=== PATIENT | female | born 1930 | race Caucasian/White ===

== ENCOUNTER 2017-08-25 22:08 | Inpatient (IN) | payer MEDICARE ==
[~2017-08-25] VITALS: Ht 165.1 cm; Wt 78.0 kg
--- NOTE | 2017-08-25 22:26 | PHYS DOC ---
Past History Past Medical History: High Cholesterol, Hypertension Additional Past Medical Histor: generalized weakness, repeated falls, behavioral disturbance acute psychosi Smoking: Non-smoker Alcohol Use: None Drug Use: None Adult General Chief Complaint Chief Complaint: acute psychosis HPI HPI Impression is an 87-year-old female who presents with acute psychosis today while at her group home facility. She is coming yesterday with a history of repeated falls generalized muscle weakness abnormalities of gait rhabdomyolysis , dehydration, hyperlipidemia, dementia with behavioral disturbances who presents after getting into some increasingly loud arguments with staff at the facility she staying at. When EMS arrived to transport her she got very aggressive with them requiring the use of Haldol to keep her comfortable quiet. She has a history of confusion is gotten progressively worse over last several days as noted in the transfer notes. They've having been increasingly difficulty and redirecting this patient. He actually refused her medications although she's been eating and drinking without issue she became increasingly agitated looking for her children or finding babies. Or specifically her baby sister. Because patient was refusing her medications and becoming increasingly agitated she was referred to our facility for evaluation and admission to the hospital for stabilization of her acute psychosis. Patient has no complaints no concerns and is completely confused as to why she is here. She says she is just sleepy Review of Systems Review of Systems Although the patient is not a great historian she denies the following Constitutional: Denies fever or chills [] Eyes: Denies change in visual acuity, redness, or eye pain [] HENT: Denies nasal congestion or sore throat [] Respiratory: Denies cough or shortness of breath [] Cardiovascular: No additional information not addressed in HPI [] GI: Denies abdominal pain, nausea, vomiting, bloody stools or diarrhea [] : Denies dysuria or hematuria [] Musculoskeletal: Denies back pain or joint pain [] Integument: Denies rash or skin lesions [] Neurologic: Denies headache, focal weakness or sensory changes [][] Physical Exam Physical Exam Constitutional: Well developed, well nourished, patient seems pretty clean does have some food stains on her shirt some mild abrasions to her chest wall to look like self inflicted excoriations HENT: Normocephalic, atraumatic, bilateral external ears normal, oropharynx moist, no oral exudates, nose normal. [] Eyes: PERRLA, EOMI, conjunctiva normal, no discharge. [] Neck: Normal range of motion, no tenderness, supple, no stridor. [] Cardiovascular:Heart rate regular rhythm, no murmur [] Lungs & Thorax: Bilateral breath sounds clear to auscultation [] Abdomen: Bowel sounds normal, soft, no tenderness, no masses, no pulsatile masses. [] Skin: Patient has significant candidal infection underneath each of her breasts Back: No tenderness, no CVA tenderness. [] Extremities: No tenderness,ROM intact, Neurologic: Alert and oriented X 1, normal motor function, normal sensory function, no focal deficits noted. [] Psychologic: Patient seems very jovial interactive although her judgment is completely off. Current Patient Data Lab Results Laboratory Tests Test 08/25/17 22:20 08/25/17 22:38 White Blood Count 7.6 x10^3/uL (4.0-11.0) Red Blood Count 5.12 x10^6/uL (3.50-5.40) Hemoglobin 15.2 g/dL (12.0-15.5) Hematocrit 45.2 % (36.0-47.0) Mean Corpuscular Volume 88 fL (79-100) Mean Corpuscular Hemoglobin 30 pg (25-35) Mean Corpuscular Hemoglobin Concent 34 g/dL (31-37) Red Cell Distribution Width 14.9 % (11.5-14.5) H Platelet Count 173 x10^3/uL (140-400) Neutrophils (%) (Auto) 53 % (31-73) Lymphocytes (%) (Auto) 26 % (24-48) Monocytes (%) (Auto) 15 % (0-9) H Eosinophils (%) (Auto) 6 % (0-3) H Basophils (%) (Auto) 1 % (0-3) Neutrophils # (Auto) 4.0 x10^3uL (1.8-7.7) Lymphocytes # (Auto) 2.0 x10^3/uL (1.0-4.8) Monocytes # (Auto) 1.2 x10^3/uL (0.0-1.1) H Eosinophils # (Auto) 0.4 x10^3/uL (0.0-0.7) Basophils # (Auto) 0.0 x10^3/uL (0.0-0.2) Magnesium Level Pending Total Bilirubin 0.3 mg/dL (0.2-1.0) Direct Bilirubin 0.1 mg/dL (0.0-0.2) Aspartate Amino Transferase (AST) 18 U/L (15-37) Alanine Aminotransferase (ALT) 22 U/L (14-59) Alkaline Phosphatase 93 U/L (46-116) Total Protein 6.6 g/dL (6.4-8.2) Albumin 3.3 g/dL (3.4-5.0) L Salicylates Level 0.8 mg/dL (2.8-20.0) L Salicylate Last Dose Date 08/25/2017 Salicylate Last Dose Time 0000 Acetaminophen Level < 2.0 mcg/mL (10-30) L Acetaminophen Last Dose Date 08/25/2017 Acetaminophen Last Dose Time 0000 Ethyl Alcohol Level < 10 mg/dL (0-10) POC Hemoglobin 15.6 gm/dL POC Hematocrit 46 % POC Sodium 141 mmol/L (135-145) POC Potassium 3.8 mmol/L (3.5-5.0) POC Chloride 106 mmol/L (98-110) POC Total CO2 24 mmol/L (23-32) Anion Gap 16 mmol/L (6-14) H POC Blood Urea Nitrogen 21 mg/dL (8-26) POC Creatinine 0.8 mg/dL (0.5-1.4) Glucose Level 124 mg/dL (60-99) H POC Ionized Calcium (Sheri) 1.19 mmol/L (1.13-1.32) EKG EKG EKG timed 10:18 PM 08/25/2017 read by me demonstrates heart rate of 67 normal sinus rhythm low voltage. Old Q-wave which is first-degree AV block QRS width 70 QTC of 432 this is a first-degree AV block without acute changes.[] Radiology/Procedures Radiology/Procedures [] Course & Med Decision Making Course & Med Decision Making Laboratory Tests Test 08/25/17 22:20 08/25/17 22:38 08/25/17 22:50 White Blood Count 7.6 x10^3/uL (4.0-11.0) Red Blood Count 5.12 x10^6/uL (3.50-5.40) Hemoglobin 15.2 g/dL (12.0-15.5) Hematocrit 45.2 % (36.0-47.0) Mean Corpuscular Volume 88 fL (79-100) Mean Corpuscular Hemoglobin 30 pg (25-35) Mean Corpuscular Hemoglobin Concent 34 g/dL (31-37) Red Cell Distribution Width 14.9 % (11.5-14.5) H Platelet Count 173 x10^3/uL (140-400) Neutrophils (%) (Auto) 53 % (31-73) Lymphocytes (%) (Auto) 26 % (24-48) Monocytes (%) (Auto) 15 % (0-9) H Eosinophils (%) (Auto) 6 % (0-3) H Basophils (%) (Auto) 1 % (0-3) Neutrophils # (Auto) 4.0 x10^3uL (1.8-7.7) Lymphocytes # (Auto) 2.0 x10^3/uL (1.0-4.8) Monocytes # (Auto) 1.2 x10^3/uL (0.0-1.1) H Eosinophils # (Auto) 0.4 x10^3/uL (0.0-0.7) Basophils # (Auto) 0.0 x10^3/uL (0.0-0.2) Magnesium Level Pending Total Bilirubin 0.3 mg/dL (0.2-1.0) Direct Bilirubin 0.1 mg/dL (0.0-0.2) Aspartate Amino Transferase (AST) 18 U/L (15-37) Alanine Aminotransferase (ALT) 22 U/L (14-59) Alkaline Phosphatase 93 U/L (46-116) Total Protein 6.6 g/dL (6.4-8.2) Albumin 3.3 g/dL (3.4-5.0) L Salicylates Level 0.8 mg/dL (2.8-20.0) L Salicylate Last Dose Date 08/25/2017 Salicylate Last Dose Time 0000 Acetaminophen Level < 2.0 mcg/mL (10-30) L Acetaminophen Last Dose Date 08/25/2017 Acetaminophen Last Dose Time 0000 Ethyl Alcohol Level < 10 mg/dL (0-10) POC Hemoglobin 15.6 gm/dL POC Hematocrit 46 % POC Sodium 141 mmol/L (135-145) POC Potassium 3.8 mmol/L (3.5-5.0) POC Chloride 106 mmol/L (98-110) POC Total CO2 24 mmol/L (23-32) Anion Gap 16 mmol/L (6-14) H POC Blood Urea Nitrogen 21 mg/dL (8-26) POC Creatinine 0.8 mg/dL (0.5-1.4) Glucose Level 124 mg/dL (60-99) H POC Ionized Calcium (Sheri) 1.19 mmol/L (1.13-1.32) Urine Collection Type U cath Urine Color Yellow Urine Clarity Clear Urine pH 5.5 Urine Specific [place] 1.015 Urine Protein Neg (NEG-TRACE) Urine Glucose (UA) Neg mg/dL (NEG) Urine Ketones (Stick) Neg mg/dL (NEG) Urine Blood Trace (NEG) Urine Nitrite Neg (NEG) Urine Bilirubin Neg (NEG) Urine Urobilinogen Dipstick 0.2 mg/dL (0.2 mg/dL) Urine Leukocyte Esterase Neg (NEG) Urine RBC Rare /HPF (0-2) Urine WBC Occ /HPF (0-4) Urine Squamous Epithelial Cells Occ /LPF Urine Bacteria 0 /HPF (0-FEW) Urine Opiates Screen Neg (NEG) Urine Methadone Screen Neg (NEG) Urine Barbiturates Neg (NEG) Urine Phencyclidine Screen Neg (NEG) Urine Amphetamine/Methamphetamine Neg (NEG) Urine Benzodiazepines Screen Neg (NEG) Urine Cocaine Screen Neg (NEG) Urine Cannabinoids Screen Neg (NEG) Urine Ethyl Alcohol Neg (NEG) Pertinent Labs and Imaging studies reviewed. (See chart for details) She presents to the emergency department secondary to behavioral problems and acute psychosis. Since troponin is negative at this time patient's CMP is unremarkable patient's anion gap is normal patient's acetaminophen, salicylate level and alcohol level on normal. Time is now 11:22 PM patient's urinalysis depending []Time is now 11:40 PM patient does not have a UTI she can be cleared and admitted to the hospital for her acute psychosis. Dragon Disclaimer Dragon Disclaimer This chart was dictated in whole or in part using Voice Recognition software in a busy, high-work load, and often noisy Emergency Department environment. It may contain unintended and wholly unrecognized errors or omissions. Departure Departure: Impression: Primary Impression: Acute psychosis Disposition: ADMITTED INPATIENT Admitting Physician: Other Condition: GUARDED BROVONT,SAVANNA A MD Aug 25, 2017 22:25
[2017-08-25 22:53] LABS: HEMOGLOBIN ISTAT 15.6 gm/dL; POTASSIUM ISTAT 3.8 mmol/L (3.5-5.0)
[2017-08-25 22:56] LABS: BASO % 1 % (0-3); EOS # 0.4 x10^3/uL (0.0-0.7); EOS % 6 % (0-3); HEMATOCRIT 45.2 % (36.0-47.0); HEMOGLOBIN 15.2 g/dL (12.0-15.5); LYMPH % 26 % (24-48); MEAN CORPUSCULAR HEMOGLOBIN 30 pg (25-35); MEAN CORPUSCULAR HGB CONC 34 g/dL (31-37); MEAN CORPUSCULAR VOLUME 88 fL (79-100); MONO # 1.2 x10^3/uL (0.0-1.1); MONO % 15 % (0-9); NEUT % 53 % (31-73); PLATELET COUNT 173 x10^3/uL (140-400); RED BLOOD COUNT 5.12 x10^6/uL (3.50-5.40); RED CELL DISTRIBUTION WIDTH 14.9 % (11.5-14.5); WHITE BLOOD COUNT 7.6 x10^3/uL (4.0-11.0)
--- NOTE | 2017-08-25 22:56 | EKG ---
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
[2017-08-25] MEDS ORDERED: NYST60PO TP (22:59)
[2017-08-25] MEDS ORDERED: ALPR0.5T PO (22:59)
[2017-08-25] MEDS ORDERED: SIMV40TA3 PO (22:59)
[2017-08-25] MEDS ORDERED: RISP0.2519 PO (22:59)
[2017-08-25] MEDS ORDERED: VIT1CAPS12 PO ×2 (22:59)
[2017-08-25] MEDS ORDERED: LUTE20TA PO (22:59)
[2017-08-25] MEDS ORDERED: QUET25TA5 PO (22:59)
[2017-08-25] MEDS ORDERED: ACET325T9 PO (22:59)
[2017-08-25] MEDS ORDERED: DEXT15DR5 OU (22:59)
[2017-08-25] MEDS ORDERED: CETI10TA22 PO (22:59)
[2017-08-25] MEDS ORDERED: TRAZ50TA15 PO (22:59)
[2017-08-25 23:07] LABS: ALBUMIN 3.3 g/dL (3.4-5.0); DIRECT BILIRUBIN 0.1 mg/dL (0.0-0.2); TOTAL BILIRUBIN 0.3 mg/dL (0.2-1.0); TOTAL PROTEIN 6.6 g/dL (6.4-8.2)
[2017-08-25 23:10] LABS: SALIC 0.8 mg/dL (2.8-20.0)
[2017-08-25 23:11] LABS: ACETAMIN < 2.0 mcg/mL (10-30)
[2017-08-25] MEDS ORDERED: CITA20TA9 PO (23:20)
[2017-08-25 23:31] LABS: AMPHETAMINE/METHAMPHETAMINE NEG (NEG); BARBITURATES NEG (NEG); BENZODIAZEPINES NEG (NEG); CANNABINOIDS NEG (NEG); COCAINE NEG (NEG); METHADONE NEG (NEG); OPIATES NEG (NEG); PHENCYCLIDINE NEG (NEG)
[2017-08-25 23:41] LABS: COLOR,URINE YELLOW
[2017-08-25 23:42] LABS: BACTERIA,URINE 0 /HPF (0-FEW); BILIRUBIN,URINE NEG (NEG); CLARITY,URINE CLEAR; GLUCOSE,URINE NEG (NEG); NITRITE,URINE NEG (NEG); RBC,URINE RARE /HPF (0-2); SQUAMOUS EPITHELIAL CELL,UR OCC /LPF; UROBILINOGEN,URINE 0.2 mg/dL (0.2 mg/dL); WBC,URINE OCC /HPF (0-4)
[2017-08-26 00:39] LABS: MAGNESIUM 2.2 mg/dL (1.8-2.4)
[2017-08-26] MEDS ORDERED: ACETAMINOPHEN 325 MG TABLET PO PRN (00:45)
[2017-08-26] MEDS ORDERED: ALPRAZolam 0.5 MG TABLET PO PRN (00:45)
[2017-08-26] MEDS ORDERED: METHYL SALICYLATE/MENTHOL TOPICAL OINTMENT 29GM TUBE. TP PRN (00:45)
[2017-08-26] MEDS ORDERED: MAG HYDROX/AL HYDROX/SIMETH 30 ML ORAL.SUSP PO PRN (00:45)
[2017-08-26 00:59] VITALS: BP 113/72
[2017-08-26 05:41] VITALS: BP 122/68
[2017-08-26] MEDS: MULTIVITAMIN I-VITE TABLET. PO SCH ×2 (07:46→17:46)
[2017-08-26] MEDS: NYSTATIN TOPICAL POWDER 15GM BOTTLE. TP SCH ×2 (07:46→20:20)
[2017-08-26] MEDS: CETIRIZINE HCL 10 MG TABLET PO SCH (07:46)
[2017-08-26] MEDS: CITALOPRAM 20 MG TABLET. PO SCH (07:47)
[2017-08-26] MEDS ORDERED: VIT E PO SCH (08:00)
[2017-08-26] MEDS ORDERED: VIT A PO SCH (08:00)
[2017-08-26] MEDS ORDERED: COPPER PO SCH (08:00)
[2017-08-26] MEDS ORDERED: VIT C PO SCH (08:00)
[2017-08-26] MEDS ORDERED: ZINC PO SCH (08:00)
[2017-08-26] MEDS: POLYVINYL ALCOHOL 1.4% OPHTH SOLUTION 15ML BOTTLE. OU SCH ×2 (09:00→20:21)
[2017-08-26] MEDS ORDERED: SIMVASTATIN 40 MG TABLET. PO SCH (09:00)
[2017-08-26] MEDS ORDERED: NON FORMULARY ITEM (Lutein 20 MG) PO SCH (12:00)
[2017-08-26 13:30] LABS: THYROID STIM HORMONE (TSH) 2.337 uIU/mL (0.358-3.740)
[2017-08-26 16:31] VITALS: BP 114/83
[2017-08-26 19:13] LABS: T3 TOTAL 100 ng/dL (71-180); THYROXINE 6.1 ug/dL (4.5-12.0)
[2017-08-26] MEDS: traZODone 50 MG TABLET. PO SCH (20:18)
[2017-08-26] MEDS: QUEtiapine 25 MG TABLET. PO SCH (20:18)
[2017-08-26] MEDS: SIMVASTATIN 40 MG TABLET. PO SCH (20:18)
[2017-08-26] MEDS: risperiDONE 0.25 MG TABLET. PO SCH (20:18)
[2017-08-27 01:14] LABS: HEMOGLOBIN A1C 5.5 % (4.8-5.6)
[2017-08-27 05:56] VITALS: BP 125/62
[2017-08-27] MEDS: MULTIVITAMIN I-VITE TABLET. PO SCH ×2 (07:44→14:03)
[2017-08-27] MEDS: CETIRIZINE HCL 10 MG TABLET PO SCH (07:44)
[2017-08-27] MEDS: CITALOPRAM 20 MG TABLET. PO SCH (07:45)
[2017-08-27] MEDS: POLYVINYL ALCOHOL 1.4% OPHTH SOLUTION 15ML BOTTLE. OU SCH ×2 (07:46→19:37)
[2017-08-27] MEDS: NYSTATIN TOPICAL POWDER 15GM BOTTLE. TP SCH ×2 (07:47→19:39)
--- NOTE | 2017-08-27 10:46 | PSYEV ---
DATE OF SERVICE: 08/26/2017 REASON FOR ADMISSION: This 87-year-old female was admitted from [facility] in [place]. The patient apparently became very delusional and paranoid, refusing medications. Her parents were killed recently, also looking for a child, exit seeking behaviors, crying and threatening towards staff. Apparently, the patient was given several p.r.n. injections to calm her down. Finally, she was sent here. CHIEF COMPLAINT: "I become bad and got into trouble." HISTORY OF PRESENT ILLNESS: The patient is a poor historian having significant problems with her memory. The patient remembers some of the things from the past. The patient states she was upset because of giving shots on her left arm and then she can become upset, threatening towards the staff. The patient states she has been at the [facility] for almost 7 years. The patient talked about her family. Her several years ago after more than 50 years of marriage and she had 2 sons, one from kidney failure and he was on dialysis. The patient currently not exhibiting any delusional thinking. The patient has problems with identification. The patient has episodic confusion, also having some problems with sleep and no change in her appetite. The patient currently denies of any active hallucinations, denies of any suicidal or homicidal thoughts. PAST PSYCHIATRIC HISTORY: None available. CURRENT MEDICATIONS: Include trazodone 12.5 mg at night, Risperdal 0.25 mg at night, Seroquel 25 mg at night. She is also on citalopram 20 mg daily, Xanax 0.5 mg q.6 hours p.r.n. PAST MEDICAL HISTORY: The patient has hyperlipidemia. The patient denies of having any major problems except for pain in left arm. PSYCHOSOCIAL HISTORY: The patient vaguely remembers few things from the past. States she finished high school with 1 year of college. 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 She was for more than 50 years. from heart disease in the past few years. The patient states since his , she has been depressed, not happy with herself. The patient also denies that she has any problems with her memory. The patient denies of any use of tobacco or alcohol. The patient denies of any abuse in her childhood. FAMILY HISTORY: None available. The patient's medical record reviewed. Apparently, patient was at [facility] in [place] recently, treated for with similar behavior problems and she has been on the [facility] center recently. The patient is DNR. MENTAL STATUS EXAMINATION: The patient appeared to be of her stated age, casually dressed, able to make eye contact. The patient is on wheelchair. The patient has some hearing loss. Eye sight is fairly good. Speech clear, monotone, decreased rate and rhythm. Affect and mood showed she has been anxious, confused at times, and recent history of behavior problems including refusing the meds, being combative with the staff and also delusional and paranoid. She thought her parents were killed recently and also she thought one of her child is missing. The patient is somewhat clear with her thinking at this time, but she did not recall where she was. The patient denies of any suicidal or homicidal thoughts. The patient currently denies of any visual or auditory hallucinations. She is oriented to surroundings. Her memory is impaired for both past and present. The patient is not able to recall 3 objects in 3 minutes. The patient's remote memory also impaired. STRENGTHS: The patient has some support system to the family. 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 AXIS II: None. AXIS III: Hyperlipidemia. ALLERGIES: The patient has no known allergies. INITIAL TREATMENT PLAN: The patient will be admitted to the inpatient program. The patient will have a full physical exam and a routine lab work, which I reviewed. Apparently, they are all within normal range except for low iron at 37, saturation 13, glucose level was 124. The patient will continue on the medication including trazodone 12.5 mg at night, Risperdal 0.25 mg at night, Seroquel 25 mg at night, citalopram 20 mg daily, Xanax 0.5 mg q.6 hours p.r.n. She is also on simvastatin 50 mg at night. The patient will be encouraged to attend all the activities and try to get information from the [facility]. LENGTH OF STAY: 7-10 days. YESICA NOEL MD DR: BERLIN/carl JOB#: [id number] / [id number]
--- NOTE | 2017-08-27 11:41 | CONS ---
DATE OF CONSULTATION: 08/26/2017 REASON FOR CONSULTATION: Medical management. HISTORY OF PRESENT ILLNESS: The patient is an 87-year-old female patient, a resident at [facility] who was [facility] on account of being paranoid, delusional, refusing medication, thinks parents have been killed, exit seeking, believes she has a missing child, crying and threatening staff. Believed that the nephrology social worker was her grandmother, all this in the background of dementia with psychosis. PAST MEDICAL HISTORY: Significant for hyperlipidemia, muscle weakness and recurrent falls. PSYCHIATRIC HISTORY: Significant for dementia with unspecified psychosis and depression. PAST SURGICAL HISTORY: Unremarkable. ALLERGIES: She has no known drug allergies. FAMILY HISTORY: Also is unremarkable. SOCIAL HISTORY: She is a resident at [facility]. MEDICATIONS: She is currently on the following medications: Tylenol 650 mg every 6 hours as needed, alprazolam for Xanax 0.5 mg every 6 hours, cetirizine 10 mg once a day, citalopram hydrobromide for Celexa 20 mg once a day, artificial tears 1 drop to both eyes twice a day, Lutein 20 mg once a day and nystatin 60 gram powder, applied topically twice a day, thiamine fumarate for Seroquel 25 mg at bedtime, risperidone 0.25 mg at bedtime, simvastatin 40 mg at bedtime, trazodone 12.5 mg at bedtime. She is also on PreserVision AREDS soft gel 1 capsule at bedtime. REVIEW OF SYSTEMS: Unobtainable. The patient is extremely demented. PHYSICAL EXAMINATION: GENERAL: When I examined her, she was sitting comfortably in her wheelchair, in no apparent respiratory distress. She was pale, but no jaundice, cyanosis, lymphadenopathy or thyromegaly. No jugular venous distention. No limb edema. VITAL SIGNS: Her heart rate was 65, blood pressure 114/83, temperature was 98, respiratory rate 20, and oxygen saturation was 93%. HEENT: Showed normocephalic, atraumatic. NECK: Supple. HEART: Showed normal first and second heart sounds with no gallop, rub or murmur. CHEST: Clear to auscultation. No crepitation or rhonchi. ABDOMEN: Distended, soft, nontender. NEUROLOGIC: She is demented, but without any obvious lateralizing sign. All cranial nerves intact. EXTREMITIES: She moves extremities without difficulty. She is mostly wheelchair bound. She stated that she is able to walk with standby assist with a walker. LABORATORY DATA: Showed that her white cell count was 7600, hemoglobin 15, hematocrit 45, MCV 88 and platelet count of 173,000 with normal manual differential. Her chemistry showed that her serum sodium 141, potassium 3.8, chloride 106, bicarbonate 24, anion gap of 16, BUN 21, creatinine 0.8, her glucose was 124. Ionized calcium was 1.19, magnesium was 2.2. Her serum iron was 37, TIBC was 288, percent saturation was 13%. Her total bilirubin, AST, ALT, alkaline phosphatase were normal. Total protein was 6.6, albumin was 3.3. Her serum triglycerides were 123. Total cholesterol 164, LDL was 96, VLDL was 24. HDL was 44, the ratio was 3. Her vitamin B12 was 610 pg/mL. TSH was normal at 2.337. Urinalysis was essentially unremarkable and urine toxicology was also negative. IMPRESSION: In summary, this is an 87-year-old female patient, a resident at [facility] who apparently is known to have dementia with psychosis, who was admitted on account of being paranoid, delusional, refusing medication, thinks her parents had been killed, exit seeking, believes that she has missing child, crying, threatening staff, she was [facility] to [facility] for inpatient psychiatric stabilization. Medically, she seemed to be stable. All her vital signs are normal. His lab works were normal. I reviewed with all her medications, seem to be appropriate. The only medical problem that she is hyperlipidemia for which she is already on simvastatin and I will obviously review all the lab work that are still pending at the time of this dictation and make any necessary recommendation. Thank you, Dr. Wade, for allowing me to participate in the care of this patient. BRI ALARCON MD DR: CHLOÉ/carl JOB#: [id number] / [id number]
[2017-08-27 15:51] VITALS: BP 102/69
[2017-08-27] MEDS: risperiDONE 0.25 MG TABLET. PO SCH (19:35)
[2017-08-27] MEDS: SIMVASTATIN 40 MG TABLET. PO SCH (19:35)
[2017-08-27] MEDS: QUEtiapine 25 MG TABLET. PO SCH (19:35)
[2017-08-27] MEDS: traZODone 50 MG TABLET. PO SCH (19:35)
[2017-08-27] MEDS: CHOLECALCIFEROL (VITAMIN D3) 50,000 UNIT CAPSULE PO SCH (19:37)
--- NOTE | 2017-08-28 02:32 | PN ---
DATE: 08/27/2017 SUBJECTIVE: The patient was seen today, met with the staff, chart reviewed. The patient apparently has settled down. She is still confused, exit-seeking behaviors, also emotionally labile. The patient has difficult to redirect at times. OBSERVATION: VITAL SIGNS: Temperature 97.3, blood pressure 125/62, pulse 67, respirations 16, and O2 sat 94%. Slept about 7 hours last night. The patient's appetite is fair. The patient is on wheelchair and no falls. Staff reports no major problems. The patient's lab reviewed. MEDICATIONS: The patient's current medications include trazodone 12.5 mg at night, Risperdal 0.25 mg at night, Seroquel 25 mg at night, Celexa 20 mg daily, Xanax 0.5 mg q.6 hours p.r.n. 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 AXIS II: None. AXIS III: Hyperlipidemia. PLAN: The patient will continue on the current treatment. Continue to observe. Length of stay 5-7 days. YESICA NOEL MD DR: BERLIN/carl JOB#: [id number] / [id number]
[2017-08-28 05:58] VITALS: BP 143/67
[2017-08-28] MEDS: CETIRIZINE HCL 10 MG TABLET PO SCH (07:51)
[2017-08-28] MEDS: CITALOPRAM 20 MG TABLET. PO SCH (07:51)
[2017-08-28] MEDS: MULTIVITAMIN I-VITE TABLET. PO SCH ×2 (07:51→18:03)
[2017-08-28] MEDS: POLYVINYL ALCOHOL 1.4% OPHTH SOLUTION 15ML BOTTLE. OU SCH ×2 (07:53→20:01)
[2017-08-28] MEDS: NYSTATIN TOPICAL POWDER 15GM BOTTLE. TP SCH ×2 (07:53→20:01)
[2017-08-28 16:42] VITALS: BP 105/56
[2017-08-28] MEDS: SIMVASTATIN 40 MG TABLET. PO SCH (19:56)
[2017-08-28] MEDS: QUEtiapine 25 MG TABLET. PO SCH (19:56)
[2017-08-28] MEDS: risperiDONE 0.25 MG TABLET. PO SCH (19:56)
[2017-08-28] MEDS: traZODone 50 MG TABLET. PO SCH (19:59)
--- NOTE | 2017-08-29 03:28 | PN ---
DATE: 08/28/2017 SUBJECTIVE: The patient was seen today, met with the staff, chart reviewed. The patient continues to be confused, constantly pacing on a wheelchair, having delusional thinking, high level of anxiety and emotional outbursts. OBSERVATION: VITAL SIGNS: Temperature 97, blood pressure 143/67, pulse 74, respirations 16, O2 sat 94%. Slept about 6-1/2 hours last night. The patient is not having any physical complaints. MEDICATIONS: The patient's current medications include trazodone 12.5 mg at night, Risperdal 0.25 mg at night, Seroquel 25 mg at night, Celexa 20 mg daily, Xanax 0.5 mg q. 6 hours p.r.n. The patient is not having side effects. ASSESSMENT: Dementia, most likely Alzheimer's with delusion and behavioral disturbances. PLAN: To continue with the treatment. YESICA NOEL MD DR: BERLIN/carl JOB#: [id number] / [id number]
[2017-08-29 06:22] VITALS: BP 121/61
[2017-08-29] MEDS: MULTIVITAMIN I-VITE TABLET. PO SCH ×2 (10:15→14:23)
[2017-08-29] MEDS: CITALOPRAM 20 MG TABLET. PO SCH (10:16)
[2017-08-29] MEDS: CETIRIZINE HCL 10 MG TABLET PO SCH (10:17)
[2017-08-29] MEDS: POLYVINYL ALCOHOL 1.4% OPHTH SOLUTION 15ML BOTTLE. OU SCH ×2 (10:18→20:05)
[2017-08-29] MEDS: NYSTATIN TOPICAL POWDER 15GM BOTTLE. TP SCH ×2 (10:19→20:05)
[2017-08-29 16:02] VITALS: BP 104/65
[2017-08-29] MEDS: risperiDONE 0.25 MG TABLET. PO SCH (20:04)
[2017-08-29] MEDS: traZODone 50 MG TABLET. PO SCH (20:04)
[2017-08-29] MEDS: SIMVASTATIN 40 MG TABLET. PO SCH (20:04)
--- NOTE | 2017-08-29 20:41 | PDOC ---
Exam Yao Demential Exam: Yao Note: Please also refer to the separate dictated note~for this date of service dictated separately.~Patient seen individually. Discussed the patient with Nursing staff reviewed the chart.~Reviewed interim history and current functioning. Reviewed vital signs,~Labs/ Radiology~and current medications noted below. Continue current treatment with the changes noted in the dictated addendum note Assessment: Vital Signs: Vital Signs Date Time Temp Pulse Resp B/P (MAP) Pulse Ox O2 Delivery O2 Flow Rate FiO2 08/29/17 16:02 97.7 65 18 104/65 (78) 92 08/29/17 06:22 Room Air 08/26/17 00:59 2.0 I&O Intake and Output 08/30/17 07:00 Intake Total 900 ml Balance 900 ml Intake Oral 900 ml Current Medications: Meds: Current Medications Acetaminophen (Tylenol) 650 mg PRN Q6HRS PRN PO PAIN / TEMP; Start 08/26/17 at 00:45 Multi-Ingredient Ointment (Analgesic [place]) 1 yasemin PRN QID PRN TP MUSCLE PAIN; Start 08/26/17 at 00:45 Al Hydroxide/Mg Hydroxide (Mylanta Plus Xs) 15 ml PRN AFTMEALHC PRN PO DYSPEPSIA; Start 08/26/17 at 00:45 Magnesium Hydroxide (Milk Of Magnesia) 2,400 mg PRN QHS PRN PO CONSTIPATION; Start 08/26/17 at 00:45 Alprazolam (Xanax) 0.5 mg PRN Q6HRS PRN PO ANXIETY / AGITATION; Start at 00:45 Citalopram Hydrobromide (CeleXA) 20 mg DAILY PO Last administered on 10:16; Start 08/26/17 at 09:00; Stop 08/29/17 at 19:37; Status DC Quetiapine Fumarate (SEROquel) 25 mg QHS PO Last administered on 08/28/17 19: 56; Start 08/26/17 at 21:00; Stop 08/29/17 at 19:37; Status DC Risperidone (RisperDAL) 0.25 mg QHS PO Last administered on 08/29/17 20:04; Start 08/26/17 at 21:00 Trazodone HCl (Desyrel) 12.5 mg QHS PO Last administered on 08/29/17 20:04; Start 08/26/17 at 21:00 Cetirizine HCl (ZyrTEC) 10 mg DAILY PO Last administered on 08/29/17 10:17; Start 08/26/17 at 09:00 Nystatin (Nystop) 1 yasemin BID TP Last administered on 08/29/17 20:05; Start at 09:00 Simvastatin (Zocor) 40 mg DAILY PO ; Start 08/26/17 at 09:00; Stop 08/26/17 at 09:00; Status DC Artificial Tears (Artificial Tears) 1 drop BID OU Last administered on 20:05; Start 08/26/17 at 09:00 Non-Formulary Medication 20 mg DAILYWLUN PO ; Start 08/26/17 at 12:00; Status UNV Multivitamins/ Minerals (I-Donavan) 1 tab BIDWMEALS PO Last administered on 14:23; Start 08/26/17 at 08:00 Non-Formulary Medication 2 cap DAILYWBKFT PO ; Start 08/26/17 at 08:00; Status UNV Simvastatin (Zocor) 40 mg HS PO Last administered on 08/29/17 20:04; Start 08/26/17 at 21:00 Vitamin D (Vitamin D3) 50,000 unit Sa@2000 PO Last administered on 08/27/17 19:37; Start 08/27/17 at 20:00 Sertraline HCl (Zoloft) 50 mg DAILY PO ; Start 08/30/17 at 09:00 Active Scripts Active Reported Celexa (Citalopram Hydrobromide) 20 Mg Tablet 20 Mg PO DAILY Zyrtec (Cetirizine Hcl) 10 Mg Tablet 10 Mg PO DAILY Tylenol (Acetaminophen) 325 Mg Tablet 650 Mg PO PRN Q6HRS PRN Trazodone Hcl 50 Mg Tablet 12.5 Mg PO QHS Simvastatin 40 Mg Tablet 40 Mg PO DAILY Seroquel (Quetiapine Fumarate) 25 Mg Tablet 25 Mg PO QHS Risperdal (Risperidone) 0.25 Mg Tablet 0.25 Mg PO QHS Preservision Areds Softgel (Vit A/Vit C/Vit E/Zinc/Copper) 1 Each Capsule 2 Cap PO DAILYWBKFT Preservision Areds Softgel (Vit A/Vit C/Vit E/Zinc/Copper) 1 Each Capsule 1 Cap PO QPM Nystop (Nystatin) 60 Gm Powder 1 Yasemin TP BID Lutein 20 Mg Tablet 20 Mg PO DAILYWLUN Artificial Tears Eye Drops (Dextran 70/Hypromellose) 15 Ml Drops 1 Drop OU BID Xanax (Alprazolam) 0.5 Mg Tablet 0.5 Mg PO PRN Q6HRS PRN Diagnosis: Problems: (1) Acute psychosis KALA COOK MD Aug 29, 2017 20:41
[2017-08-30 05:50] VITALS: BP 144/69
[2017-08-30] MEDS: MULTIVITAMIN I-VITE TABLET. PO SCH ×2 (08:53→11:14)
[2017-08-30] MEDS: CETIRIZINE HCL 10 MG TABLET PO SCH (11:14)
[2017-08-30] MEDS: NYSTATIN TOPICAL POWDER 15GM BOTTLE. TP SCH ×2 (11:14→20:29)
[2017-08-30] MEDS: POLYVINYL ALCOHOL 1.4% OPHTH SOLUTION 15ML BOTTLE. OU SCH ×2 (11:15→20:26)
[2017-08-30] MEDS: SERTRALINE 50 MG TABLET. PO SCH (11:15)
[2017-08-30] MEDS: MAGNESIUM HYDROXIDE 2,400 MG/30 ML ORAL.SUSP. PO PRN ×2 (16:01→16:02)
[2017-08-30 16:12] VITALS: BP 142/90
[2017-08-30] MEDS: SIMVASTATIN 40 MG TABLET. PO SCH (20:27)
[2017-08-30] MEDS: traZODone 50 MG TABLET. PO SCH (20:27)
[2017-08-30] MEDS: risperiDONE 0.25 MG TABLET. PO SCH (20:27)
[2017-08-30] MEDS ORDERED: risperiDONE 0.25 MG TABLET. PO SCH (21:00)
--- NOTE | 2017-08-30 22:06 | PDOC ---
Exam Yao Demential Exam: Yao Note: Please also refer to the separate dictated note~for this date of service dictated separately.~Patient seen individually. Discussed the patient with Nursing staff reviewed the chart.~Reviewed interim history and current functioning. Reviewed vital signs,~Labs/ Radiology~and current medications noted below. Continue current treatment with the changes noted in the dictated addendum note Assessment: Vital Signs: Vital Signs Date Time Temp Pulse Resp B/P (MAP) Pulse Ox O2 Delivery O2 Flow Rate FiO2 08/30/17 16:12 97.5 88 18 142/90 (107) 94 08/29/17 06:22 Room Air 08/26/17 00:59 2.0 I&O Intake and Output 08/31/17 07:00 Intake Total 840 ml Balance 840 ml Intake Oral 840 ml Current Medications: Meds: Current Medications Acetaminophen (Tylenol) 650 mg PRN Q6HRS PRN PO PAIN / TEMP; Start 08/26/17 at 00:45 Multi-Ingredient Ointment (Analgesic [place]) 1 yasemin PRN QID PRN TP MUSCLE PAIN; Start 08/26/17 at 00:45 Al Hydroxide/Mg Hydroxide (Mylanta Plus Xs) 15 ml PRN AFTMEALHC PRN PO DYSPEPSIA; Start 08/26/17 at 00:45 Magnesium Hydroxide (Milk Of Magnesia) 2,400 mg PRN QHS PRN PO CONSTIPATION Last administered on 08/30/17 16:02; Start 08/26/17 at 00:45 Alprazolam (Xanax) 0.5 mg PRN Q6HRS PRN PO ANXIETY / AGITATION; Start at 00:45 Citalopram Hydrobromide (CeleXA) 20 mg DAILY PO Last administered on 10:16; Start 08/26/17 at 09:00; Stop 08/29/17 at 19:37; Status DC Quetiapine Fumarate (SEROquel) 25 mg QHS PO Last administered on 08/28/17 19: 56; Start 08/26/17 at 21:00; Stop 08/29/17 at 19:37; Status DC Risperidone (RisperDAL) 0.25 mg QHS PO Last administered on 08/29/17 20:04; Start 08/26/17 at 21:00; Stop 08/30/17 at 18:39; Status DC Trazodone HCl (Desyrel) 12.5 mg QHS PO Last administered on 08/30/17 20:27; Start 08/26/17 at 21:00 Cetirizine HCl (ZyrTEC) 10 mg DAILY PO Last administered on 08/30/17 11:14; Start 08/26/17 at 09:00 Nystatin (Nystop) 1 yasemin BID TP Last administered on 08/30/17 20:29; Start at 09:00 Simvastatin (Zocor) 40 mg DAILY PO ; Start 08/26/17 at 09:00; Stop 08/26/17 at 09:00; Status DC Artificial Tears (Artificial Tears) 1 drop BID OU Last administered on 20:26; Start 08/26/17 at 09:00 Non-Formulary Medication 20 mg DAILYWLUN PO ; Start 08/26/17 at 12:00; Status UNV Multivitamins/ Minerals (I-[place]) 1 tab BIDWMEALS PO Last administered on 11:14; Start 08/26/17 at 08:00 Non-Formulary Medication 2 cap DAILYWBKFT PO ; Start 08/26/17 at 08:00; Status UNV Simvastatin (Zocor) 40 mg HS PO Last administered on 08/30/17 20:27; Start 08/26/17 at 21:00 Vitamin D (Vitamin D3) 50,000 unit Sa@2000 PO Last administered on 08/27/17 19:37; Start 08/27/17 at 20:00 Sertraline HCl (Zoloft) 50 mg DAILY PO Last administered on 08/30/17 11:15; Start 08/30/17 at 09:00 Risperidone (RisperDAL) 0.37 mg QHS PO ; Start 08/30/17 at 21:00; Stop at 21:00; Status DC Risperidone (RisperDAL) 0.375 mg HS PO Last administered on 08/30/17 20:27; Start 08/30/17 at 21:00 Active Scripts Active Reported Celexa (Citalopram Hydrobromide) 20 Mg Tablet 20 Mg PO DAILY Zyrtec (Cetirizine Hcl) 10 Mg Tablet 10 Mg PO DAILY Tylenol (Acetaminophen) 325 Mg Tablet 650 Mg PO PRN Q6HRS PRN Trazodone Hcl 50 Mg Tablet 12.5 Mg PO QHS Simvastatin 40 Mg Tablet 40 Mg PO DAILY Seroquel (Quetiapine Fumarate) 25 Mg Tablet 25 Mg PO QHS Risperdal (Risperidone) 0.25 Mg Tablet 0.25 Mg PO QHS Preservision Areds Softgel (Vit A/Vit C/Vit E/Zinc/Copper) 1 Each Capsule 2 Cap PO DAILYWBKFT Preservision Areds Softgel (Vit A/Vit C/Vit E/Zinc/Copper) 1 Each Capsule 1 Cap PO QPM Nystop (Nystatin) 60 Gm Powder 1 Yasemin TP BID Lutein 20 Mg Tablet 20 Mg PO DAILYWLUN Artificial Tears Eye Drops (Dextran 70/Hypromellose) 15 Ml Drops 1 Drop OU BID Xanax (Alprazolam) 0.5 Mg Tablet 0.5 Mg PO PRN Q6HRS PRN Diagnosis: Problems: (1) Acute psychosis KALA COOK MD Aug 30, 2017 22:06
--- NOTE | 2017-08-31 01:30 | PN ---
DATE: 08/29/2017 PSYCHIATRIC PROGRESS NOTE This is a late entry for date of service 08/29/2017, covers the elements not covered in my initial note of 08/29/2017. SUBJECTIVE: I met with the patient the evening of 08/29/2017. The patient remains confused, believes she has been moved here because her had a job and they moved him here for work. Takes her medications whole, oriented to herself. REVIEW OF SYSTEMS: Ambulation impaired, in a wheelchair. No CV, , pulmonary, eye, ENT system symptoms on review. Reliability poor. MENTAL STATUS EXAM: Oriented to herself. Insight, judgment, recent and remote memory, attention, concentration, fund of knowledge poor, consistent with her diagnosis mentioned in my initial note. PLAN: Change Celexa 20 mg a day to Zoloft 50 mg a day for mood, anxiety symptoms, increased gradually. Continue Risperdal 0.25 mg at bedtime, stop the Seroquel 25 mg at bedtime to avoid using 2 atypical antipsychotics in combination, maintain Xanax p.r.n., trazodone 12.5 mg p.o. at bedtime. Reviewed drug interactions, risk/benefit ratio favors no further change. KALA COOK MD DR: DIAZ/carl JOB#: [id number] / [id number]
[2017-08-31 05:55] VITALS: BP 133/62
[2017-08-31] MEDS: MULTIVITAMIN I-VITE TABLET. PO SCH ×2 (07:46→16:35)
[2017-08-31] MEDS: SERTRALINE 50 MG TABLET. PO SCH (07:47)
[2017-08-31] MEDS: MAGNESIUM HYDROXIDE 2,400 MG/30 ML ORAL.SUSP. PO PRN (07:47)
[2017-08-31] MEDS: CETIRIZINE HCL 10 MG TABLET PO SCH (07:47)
[2017-08-31] MEDS: POLYVINYL ALCOHOL 1.4% OPHTH SOLUTION 15ML BOTTLE. OU SCH ×2 (07:48→19:59)
[2017-08-31] MEDS: NYSTATIN TOPICAL POWDER 15GM BOTTLE. TP SCH ×2 (07:48→20:02)
[2017-08-31 16:32] VITALS: BP 105/50
[2017-08-31] MEDS: traZODone 50 MG TABLET. PO SCH (19:59)
[2017-08-31] MEDS: risperiDONE 0.25 MG TABLET. PO SCH (20:00)
[2017-08-31] MEDS: SIMVASTATIN 40 MG TABLET. PO SCH (20:00)
--- NOTE | 2017-08-31 20:50 | PDOC ---
Exam Yao Demential Exam: Yao Note: Please also refer to the separate dictated note~for this date of service dictated separately.~Patient seen individually. Discussed the patient with Nursing staff reviewed the chart.~Reviewed interim history and current functioning. Reviewed vital signs,~Labs/ Radiology~and current medications noted below. Continue current treatment with the changes noted in the dictated addendum note Assessment: Vital Signs: Vital Signs Date Time Temp Pulse Resp B/P (MAP) Pulse Ox O2 Delivery O2 Flow Rate FiO2 08/31/17 16:32 97.4 84 20 105/50 (68) 92 Room Air 08/26/17 00:59 2.0 I&O Intake and Output 09/01/17 07:00 Intake Total 840 ml Balance 840 ml Intake Oral 840 ml Current Medications: Meds: Current Medications Acetaminophen (Tylenol) 650 mg PRN Q6HRS PRN PO PAIN / TEMP; Start 08/26/17 at 00:45 Multi-Ingredient Ointment (Analgesic [place]) 1 yasemin PRN QID PRN TP MUSCLE PAIN; Start 08/26/17 at 00:45 Al Hydroxide/Mg Hydroxide (Mylanta Plus Xs) 15 ml PRN AFTMEALHC PRN PO DYSPEPSIA; Start 08/26/17 at 00:45 Magnesium Hydroxide (Milk Of Magnesia) 2,400 mg PRN QHS PRN PO CONSTIPATION Last administered on 08/31/17 07:47; Start 08/26/17 at 00:45 Alprazolam (Xanax) 0.5 mg PRN Q6HRS PRN PO ANXIETY / AGITATION; Start at 00:45 Citalopram Hydrobromide (CeleXA) 20 mg DAILY PO Last administered on 10:16; Start 08/26/17 at 09:00; Stop 08/29/17 at 19:37; Status DC Quetiapine Fumarate (SEROquel) 25 mg QHS PO Last administered on 08/28/17 19: 56; Start 08/26/17 at 21:00; Stop 08/29/17 at 19:37; Status DC Risperidone (RisperDAL) 0.25 mg QHS PO Last administered on 08/29/17 20:04; Start 08/26/17 at 21:00; Stop 08/30/17 at 18:39; Status DC Trazodone HCl (Desyrel) 12.5 mg QHS PO Last administered on 08/31/17 19:59; Start 08/26/17 at 21:00 Cetirizine HCl (ZyrTEC) 10 mg DAILY PO Last administered on 08/31/17 07:47; Start 08/26/17 at 09:00 Nystatin (Nystop) 1 yasemin BID TP Last administered on 08/31/17 20:02; Start at 09:00 Simvastatin (Zocor) 40 mg DAILY PO ; Start 08/26/17 at 09:00; Stop 08/26/17 at 09:00; Status DC Artificial Tears (Artificial Tears) 1 drop BID OU Last administered on 19:59; Start 08/26/17 at 09:00 Non-Formulary Medication 20 mg DAILYWLUN PO ; Start 08/26/17 at 12:00; Status UNV Multivitamins/ Minerals (I-[place]) 1 tab BIDWMEALS PO Last administered on 16:35; Start 08/26/17 at 08:00 Non-Formulary Medication 2 cap DAILYWBKFT PO ; Start 08/26/17 at 08:00; Status UNV Simvastatin (Zocor) 40 mg HS PO Last administered on 08/31/17 20:00; Start at 21:00 Vitamin D (Vitamin D3) 50,000 unit Sa@2000 PO Last administered on 08/27/17 19:37; Start 08/27/17 at 20:00 Sertraline HCl (Zoloft) 50 mg DAILY PO Last administered on 08/31/17 07:47; Start 08/30/17 at 09:00 Risperidone (RisperDAL) 0.37 mg QHS PO ; Start 08/30/17 at 21:00; Stop at 21:00; Status DC Risperidone (RisperDAL) 0.375 mg HS PO Last administered on 08/31/17 20:00; Start 08/30/17 at 21:00 Active Scripts Active Reported Celexa (Citalopram Hydrobromide) 20 Mg Tablet 20 Mg PO DAILY Zyrtec (Cetirizine Hcl) 10 Mg Tablet 10 Mg PO DAILY Tylenol (Acetaminophen) 325 Mg Tablet 650 Mg PO PRN Q6HRS PRN Trazodone Hcl 50 Mg Tablet 12.5 Mg PO QHS Simvastatin 40 Mg Tablet 40 Mg PO DAILY Seroquel (Quetiapine Fumarate) 25 Mg Tablet 25 Mg PO QHS Risperdal (Risperidone) 0.25 Mg Tablet 0.25 Mg PO QHS Preservision Areds Softgel (Vit A/Vit C/Vit E/Zinc/Copper) 1 Each Capsule 2 Cap PO DAILYWBKFT Preservision Areds Softgel (Vit A/Vit C/Vit E/Zinc/Copper) 1 Each Capsule 1 Cap PO QPM Nystop (Nystatin) 60 Gm Powder 1 Yasemin TP BID Lutein 20 Mg Tablet 20 Mg PO DAILYWLUN Artificial Tears Eye Drops (Dextran 70/Hypromellose) 15 Ml Drops 1 Drop OU BID Xanax (Alprazolam) 0.5 Mg Tablet 0.5 Mg PO PRN Q6HRS PRN Diagnosis: Problems: (1) Acute psychosis KALA COOK MD Aug 31, 2017 20:50
--- NOTE | 2017-08-31 22:58 | PN ---
DATE: 08/30/2017 This is a late entry for date of service 08/30/2017 and covers elements not covered in my initial note of 08/30/2017. I met with the patient the evening of 08/30/2017. She slept 7-3/4 hours the previous evening, remains confused, cooperative, pleasant. REVIEW OF SYSTEMS: Ambulation impaired, in wheelchair. No CV, , pulmonary, eye, ENT system symptoms on review. Reliability poor. MENTAL STATUS EXAM: Oriented to herself. Insight, judgment, recent and remote memory, attention, concentration, fund of knowledge poor, consistent with her diagnosis mentioned in my initial note. PLAN: Continue current psychotropics, Zoloft 50 mg a day, increase Risperdal from 0.25 mg at bedtime to 0.375 mg at bedtime. Stop the Seroquel to avoid using 2 atypical antipsychotics in combination, maintain trazodone 12.5 mg p.o. at bedtime. Reviewed drug interactions, risk/benefit ratio favors no further change. MAN Winsome COOK MD DR: DIAZ/carl JOB#: [id number] / [id number]
[2017-09-01 06:17] VITALS: BP 133/79
[2017-09-01] MEDS: CETIRIZINE HCL 10 MG TABLET PO SCH (08:13)
[2017-09-01] MEDS: SERTRALINE 50 MG TABLET. PO SCH (08:13)
[2017-09-01] MEDS: MULTIVITAMIN I-VITE TABLET. PO SCH ×2 (08:13→17:01)
[2017-09-01] MEDS: POLYVINYL ALCOHOL 1.4% OPHTH SOLUTION 15ML BOTTLE. OU SCH ×2 (08:14→20:21)
[2017-09-01] MEDS: NYSTATIN TOPICAL POWDER 15GM BOTTLE. TP SCH ×2 (08:17→20:21)
--- NOTE | 2017-09-01 12:45 | PN ---
DATE: 08/31/2017 This late entry 08/31/2017 covers elements not covered in my initial note of 08/31/2017. SUBJECTIVE: The patient is seen individually evening of 08/31/2017, staffed at treatment team meeting morning of 08/31/2017 with her son, Sunday pat. Reviewed the patient's history, she remains confused, pleasant, not aggressive. REVIEW OF SYSTEMS: Ambulation impaired. No CV, , pulmonary, eye, ENT system symptoms on review. Reliability poor. MENTAL STATUS EXAM: Oriented to herself. Insight, judgment, recent and remote memory, attention, concentration, fund of knowledge poor, consistent with her diagnosis mentioned in my initial note. PLAN: Continue current psychotropics, Zoloft [address] of Celexa, Risperdal was increased to 0.375 mg a day, Seroquel was discontinued, Zyprexa p.r.n. Make further adjustments as clinically indicated. Reviewed drug interactions. Risk/benefit ratio favors no further change. KALA COOK MD DR: DIAZ/carl JOB#: [id number] / [id number]
[2017-09-01 16:23] VITALS: BP 114/43
[2017-09-01] MEDS: risperiDONE 0.25 MG TABLET. PO SCH (20:18)
[2017-09-01] MEDS: SIMVASTATIN 40 MG TABLET. PO SCH (20:18)
[2017-09-01] MEDS: traZODone 50 MG TABLET. PO SCH (20:19)
--- NOTE | 2017-09-01 20:48 | PDOC ---
Exam Yao Demential Exam: Yao Note: Please also refer to the separate dictated note~for this date of service dictated separately.~Patient seen individually. Discussed the patient with Nursing staff reviewed the chart.~Reviewed interim history and current functioning. Reviewed vital signs,~Labs/ Radiology~and current medications noted below. Continue current treatment with the changes noted in the dictated addendum note Assessment: Vital Signs: Vital Signs Date Time Temp Pulse Resp B/P (MAP) Pulse Ox O2 Delivery O2 Flow Rate FiO2 09/01/17 16:23 97.1 68 16 114/43 (66) 93 Room Air I&O Intake and Output 09/02/17 07:00 Intake Total 960 ml Balance 960 ml Intake Oral 960 ml Current Medications: Meds: Current Medications Acetaminophen (Tylenol) 650 mg PRN Q6HRS PRN PO PAIN / TEMP; Start 08/26/17 at 00:45 Multi-Ingredient Ointment (Analgesic [place]) 1 yasemin PRN QID PRN TP MUSCLE PAIN; Start 08/26/17 at 00:45 Al Hydroxide/Mg Hydroxide (Mylanta Plus Xs) 15 ml PRN AFTMEALHC PRN PO DYSPEPSIA; Start 08/26/17 at 00:45 Magnesium Hydroxide (Milk Of Magnesia) 2,400 mg PRN QHS PRN PO CONSTIPATION Last administered on 08/31/17 07:47; Start 08/26/17 at 00:45 Alprazolam (Xanax) 0.5 mg PRN Q6HRS PRN PO ANXIETY / AGITATION; Start at 00:45 Citalopram Hydrobromide (CeleXA) 20 mg DAILY PO Last administered on 10:16; Start 08/26/17 at 09:00; Stop 08/29/17 at 19:37; Status DC Quetiapine Fumarate (SEROquel) 25 mg QHS PO Last administered on 08/28/17 19: 56; Start 08/26/17 at 21:00; Stop 08/29/17 at 19:37; Status DC Risperidone (RisperDAL) 0.25 mg QHS PO Last administered on 08/29/17 20:04; Start 08/26/17 at 21:00; Stop 08/30/17 at 18:39; Status DC Trazodone HCl (Desyrel) 12.5 mg QHS PO Last administered on 09/01/17 20:19; Start 08/26/17 at 21:00 Cetirizine HCl (ZyrTEC) 10 mg DAILY PO Last administered on 09/01/17 08:13; Start 08/26/17 at 09:00 Nystatin (Nystop) 1 yasemin BID TP Last administered on 09/01/17 20:21; Start at 09:00 Simvastatin (Zocor) 40 mg DAILY PO ; Start 08/26/17 at 09:00; Stop 08/26/17 at 09:00; Status DC Artificial Tears (Artificial Tears) 1 drop BID OU Last administered on 20:21; Start 08/26/17 at 09:00 Non-Formulary Medication 20 mg DAILYWLUN PO ; Start 08/26/17 at 12:00; Status UNV Multivitamins/ Minerals (I-[place]avan) 1 tab BIDWMEALS PO Last administered on 17:01; Start 08/26/17 at 08:00 Non-Formulary Medication 2 cap DAILYWBKFT PO ; Start 08/26/17 at 08:00; Status UNV Simvastatin (Zocor) 40 mg HS PO Last administered on 09/01/17 20:18; Start at 21:00 Vitamin D (Vitamin D3) 50,000 unit Sa@2000 PO Last administered on 08/27/17 19:37; Start 08/27/17 at 20:00 Sertraline HCl (Zoloft) 50 mg DAILY PO Last administered on 09/01/17 08:13; Start 08/30/17 at 09:00 Risperidone (RisperDAL) 0.37 mg QHS PO ; Start 08/30/17 at 21:00; Stop at 21:00; Status DC Risperidone (RisperDAL) 0.375 mg HS PO Last administered on 09/01/17 20:18; Start 08/30/17 at 21:00 Active Scripts Active Reported Celexa (Citalopram Hydrobromide) 20 Mg Tablet 20 Mg PO DAILY Zyrtec (Cetirizine Hcl) 10 Mg Tablet 10 Mg PO DAILY Tylenol (Acetaminophen) 325 Mg Tablet 650 Mg PO PRN Q6HRS PRN Trazodone Hcl 50 Mg Tablet 12.5 Mg PO QHS Simvastatin 40 Mg Tablet 40 Mg PO DAILY Seroquel (Quetiapine Fumarate) 25 Mg Tablet 25 Mg PO QHS Risperdal (Risperidone) 0.25 Mg Tablet 0.25 Mg PO QHS Preservision Areds Softgel (Vit A/Vit C/Vit E/Zinc/Copper) 1 Each Capsule 2 Cap PO DAILYWBKFT Preservision Areds Softgel (Vit A/Vit C/Vit E/Zinc/Copper) 1 Each Capsule 1 Cap PO QPM Nystop (Nystatin) 60 Gm Powder 1 Ysaemin TP BID Lutein 20 Mg Tablet 20 Mg PO DAILYWLUN Artificial Tears Eye Drops (Dextran 70/Hypromellose) 15 Ml Drops 1 Drop OU BID Xanax (Alprazolam) 0.5 Mg Tablet 0.5 Mg PO PRN Q6HRS PRN Diagnosis: Problems: (1) Acute psychosis KALA COOK MD Sep 01, 2017 20:48
[2017-09-02 06:12] VITALS: BP 113/60
[2017-09-02] MEDS: POLYVINYL ALCOHOL 1.4% OPHTH SOLUTION 15ML BOTTLE. OU SCH ×2 (08:26→19:32)
[2017-09-02] MEDS: SERTRALINE 50 MG TABLET. PO SCH (08:26)
[2017-09-02] MEDS: MULTIVITAMIN I-VITE TABLET. PO SCH ×2 (08:26→16:34)
[2017-09-02] MEDS: NYSTATIN TOPICAL POWDER 15GM BOTTLE. TP SCH ×2 (08:26→19:32)
[2017-09-02] MEDS: CETIRIZINE HCL 10 MG TABLET PO SCH (08:26)
[2017-09-02 16:14] VITALS: BP 100/51
[2017-09-02] MEDS: traZODone 50 MG TABLET. PO SCH (19:30)
[2017-09-02] MEDS: SIMVASTATIN 40 MG TABLET. PO SCH (19:31)
[2017-09-02] MEDS: risperiDONE 0.25 MG TABLET. PO SCH (19:31)
--- NOTE | 2017-09-02 20:56 | PDOC ---
Exam Yao Demential Exam: Yao Note: Please also refer to the separate dictated note~for this date of service dictated separately.~Patient seen individually. Discussed the patient with Nursing staff reviewed the chart.~Reviewed interim history and current functioning. Reviewed vital signs,~Labs/ Radiology~and current medications noted below. Continue current treatment with the changes noted in the dictated addendum note Assessment: Vital Signs: Vital Signs Date Time Temp Pulse Resp B/P (MAP) Pulse Ox O2 Delivery O2 Flow Rate FiO2 09/02/17 16:14 98.6 77 18 100/51 (67) 92 09/01/17 16:23 Room Air I&O Intake and Output 09/03/17 07:00 Intake Total 960 ml Balance 960 ml Intake Oral 960 ml Current Medications: Meds: Current Medications Acetaminophen (Tylenol) 650 mg PRN Q6HRS PRN PO PAIN / TEMP; Start 08/26/17 at 00:45 Multi-Ingredient Ointment (Analgesic [place]) 1 yasemin PRN QID PRN TP MUSCLE PAIN; Start 08/26/17 at 00:45 Al Hydroxide/Mg Hydroxide (Mylanta Plus Xs) 15 ml PRN AFTMEALHC PRN PO DYSPEPSIA; Start 08/26/17 at 00:45 Magnesium Hydroxide (Milk Of Magnesia) 2,400 mg PRN QHS PRN PO CONSTIPATION Last administered on 08/31/17 07:47; Start 08/26/17 at 00:45 Alprazolam (Xanax) 0.5 mg PRN Q6HRS PRN PO ANXIETY / AGITATION; Start at 00:45 Citalopram Hydrobromide (CeleXA) 20 mg DAILY PO Last administered on 10:16; Start 08/26/17 at 09:00; Stop 08/29/17 at 19:37; Status DC Quetiapine Fumarate (SEROquel) 25 mg QHS PO Last administered on 08/28/17 19: 56; Start 08/26/17 at 21:00; Stop 08/29/17 at 19:37; Status DC Risperidone (RisperDAL) 0.25 mg QHS PO Last administered on 08/29/17 20:04; Start 08/26/17 at 21:00; Stop 08/30/17 at 18:39; Status DC Trazodone HCl (Desyrel) 12.5 mg QHS PO Last administered on 09/02/17 19:30; Start 08/26/17 at 21:00 Cetirizine HCl (ZyrTEC) 10 mg DAILY PO Last administered on 09/02/17 08:26; Start 08/26/17 at 09:00 Nystatin (Nystop) 1 yasemin BID TP Last administered on 09/02/17 19:32; Start at 09:00 Simvastatin (Zocor) 40 mg DAILY PO ; Start 08/26/17 at 09:00; Stop 08/26/17 at 09:00; Status DC Artificial Tears (Artificial Tears) 1 drop BID OU Last administered on 19:32; Start 08/26/17 at 09:00 Non-Formulary Medication 20 mg DAILYWLUN PO ; Start 08/26/17 at 12:00; Status UNV Multivitamins/ Minerals (I-[place]) 1 tab BIDWMEALS PO Last administered on 16:34; Start 08/26/17 at 08:00 Non-Formulary Medication 2 cap DAILYWBKFT PO ; Start 08/26/17 at 08:00; Status UNV Simvastatin (Zocor) 40 mg HS PO Last administered on 09/02/17 19:31; Start at 21:00 Vitamin D (Vitamin D3) 50,000 unit Sa@2000 PO Last administered on 08/27/17 19:37; Start 08/27/17 at 20:00 Sertraline HCl (Zoloft) 50 mg DAILY PO Last administered on 09/02/17 08:26; Start 08/30/17 at 09:00 Risperidone (RisperDAL) 0.37 mg QHS PO ; Start 08/30/17 at 21:00; Stop at 21:00; Status DC Risperidone (RisperDAL) 0.375 mg HS PO Last administered on 09/02/17 19:31; Start 08/30/17 at 21:00 Active Scripts Active Reported Celexa (Citalopram Hydrobromide) 20 Mg Tablet 20 Mg PO DAILY Zyrtec (Cetirizine Hcl) 10 Mg Tablet 10 Mg PO DAILY Tylenol (Acetaminophen) 325 Mg Tablet 650 Mg PO PRN Q6HRS PRN Trazodone Hcl 50 Mg Tablet 12.5 Mg PO QHS Simvastatin 40 Mg Tablet 40 Mg PO DAILY Seroquel (Quetiapine Fumarate) 25 Mg Tablet 25 Mg PO QHS Risperdal (Risperidone) 0.25 Mg Tablet 0.25 Mg PO QHS Preservision Areds Softgel (Vit A/Vit C/Vit E/Zinc/Copper) 1 Each Capsule 2 Cap PO DAILYWBKFT Preservision Areds Softgel (Vit A/Vit C/Vit E/Zinc/Copper) 1 Each Capsule 1 Cap PO QPM Nystop (Nystatin) 60 Gm Powder 1 Yasemin TP BID Lutein 20 Mg Tablet 20 Mg PO DAILYWLUN Artificial Tears Eye Drops (Dextran 70/Hypromellose) 15 Ml Drops 1 Drop OU BID Xanax (Alprazolam) 0.5 Mg Tablet 0.5 Mg PO PRN Q6HRS PRN Diagnosis: Problems: (1) Acute psychosis KALA COOK MD Sep 02, 2017 20:56
[2017-09-03 06:02] VITALS: BP 136/89
[2017-09-03] MEDS: SERTRALINE 50 MG TABLET. PO SCH (08:32)
[2017-09-03] MEDS: MULTIVITAMIN I-VITE TABLET. PO SCH ×2 (08:32→18:04)
[2017-09-03] MEDS: CETIRIZINE HCL 10 MG TABLET PO SCH (08:32)
[2017-09-03] MEDS: POLYVINYL ALCOHOL 1.4% OPHTH SOLUTION 15ML BOTTLE. OU SCH ×2 (08:33→19:46)
[2017-09-03] MEDS: NYSTATIN TOPICAL POWDER 15GM BOTTLE. TP SCH ×2 (08:33→19:46)
--- NOTE | 2017-09-03 09:09 | PN ---
DATE: 09/01/2017 PSYCHIATRIC PROGRESS NOTE This late entry 09/01/2017 covers elements, not covered in my initial note of 09/01/2017. SUBJECTIVE: The patient was seen individually evening of 09/01/2017. The patient remains confused, but pleasant, redirectable. REVIEW OF SYSTEMS: Ambulation impaired, in wheelchair. No CV, , pulmonary, eye, ENT system symptoms on review. MENTAL STATUS EXAM: Oriented to herself. Insight, judgment, recent and remote memory, attention, concentration, fund of knowledge poor, consistent with her diagnosis mentioned in my initial note. LABORATORY DATA: Reviewed. IMPRESSION: Unchanged from initial note. PLAN: Continue current psychotropics. Reviewed drug interactions. Risk/benefit ratio favors no further change. KALA COOK MD DR: DIAZ/carl JOB#: [id number] / [id number]
[2017-09-03 16:14] VITALS: BP 107/55
[2017-09-03] MEDS: SIMVASTATIN 40 MG TABLET. PO SCH (19:43)
[2017-09-03] MEDS: traZODone 50 MG TABLET. PO SCH (19:43)
[2017-09-03] MEDS: risperiDONE 0.25 MG TABLET. PO SCH (19:44)
[2017-09-03] MEDS: CHOLECALCIFEROL (VITAMIN D3) 50,000 UNIT CAPSULE PO SCH (19:46)
--- NOTE | 2017-09-03 22:20 | PN ---
DATE: 09/02/2017 PSYCHIATRIC PROGRESS NOTE This is a late entry for 09/02/2017, covers elements not covered in my initial note of 09/02/2017. SUBJECTIVE: I met with the patient in evening of 09/02/2017. The patient remains confused, but otherwise pleasant, cooperative, not aggressive, delusions are improved. REVIEW OF SYSTEMS: Ambulation impaired, in a wheelchair. No CV, , pulmonary, eye, ENT system symptoms on review. MENTAL STATUS EXAM: Oriented to herself. Insight, judgment, recent and remote memory, attention, concentration, fund of knowledge poor, consistent with her diagnosis mentioned in my initial note. PLAN: Continue psychotropics mentioned in my initial note. Reviewed drug interactions. Risk/benefit ratio favors no further change. MAN Winsome COOK MD DR: DIAZ/carl JOB#: [id number] / [id number]
--- NOTE | 2017-09-03 23:51 | PDOC ---
Exam Yao Demential Exam: Yao Note: Please also refer to the separate dictated note~for this date of service dictated separately.~Patient seen individually. Discussed the patient with Nursing staff reviewed the chart.~Reviewed interim history and current functioning. Reviewed vital signs,~Labs/ Radiology~and current medications noted below. Continue current treatment with the changes noted in the dictated addendum note Assessment: Vital Signs: Vital Signs Date Time Temp Pulse Resp B/P (MAP) Pulse Ox O2 Delivery O2 Flow Rate FiO2 09/03/17 16:14 97.4 75 16 107/55 (72) 92 09/01/17 16:23 Room Air I&O Intake and Output 09/04/17 07:00 Intake Total 720 ml Balance 720 ml Intake Oral 720 ml Current Medications: Meds: Current Medications Acetaminophen (Tylenol) 650 mg PRN Q6HRS PRN PO PAIN / TEMP; Start 08/26/17 at 00:45 Multi-Ingredient Ointment (Analgesic [place]) 1 yasemin PRN QID PRN TP MUSCLE PAIN; Start 08/26/17 at 00:45 Al Hydroxide/Mg Hydroxide (Mylanta Plus Xs) 15 ml PRN AFTMEALHC PRN PO DYSPEPSIA; Start 08/26/17 at 00:45 Magnesium Hydroxide (Milk Of Magnesia) 2,400 mg PRN QHS PRN PO CONSTIPATION Last administered on 08/31/17 07:47; Start 08/26/17 at 00:45 Alprazolam (Xanax) 0.5 mg PRN Q6HRS PRN PO ANXIETY / AGITATION; Start at 00:45 Citalopram Hydrobromide (CeleXA) 20 mg DAILY PO Last administered on 10:16; Start 08/26/17 at 09:00; Stop 08/29/17 at 19:37; Status DC Quetiapine Fumarate (SEROquel) 25 mg QHS PO Last administered on 08/28/17 19: 56; Start 08/26/17 at 21:00; Stop 08/29/17 at 19:37; Status DC Risperidone (RisperDAL) 0.25 mg QHS PO Last administered on 08/29/17 20:04; Start 08/26/17 at 21:00; Stop 08/30/17 at 18:39; Status DC Trazodone HCl (Desyrel) 12.5 mg QHS PO Last administered on 09/03/17 19:43; Start 08/26/17 at 21:00 Cetirizine HCl (ZyrTEC) 10 mg DAILY PO Last administered on 09/03/17 08:32; Start 08/26/17 at 09:00 Nystatin (Nystop) 1 yasemin BID TP Last administered on 09/03/17 19:46; Start at 09:00 Simvastatin (Zocor) 40 mg DAILY PO ; Start 08/26/17 at 09:00; Stop 08/26/17 at 09:00; Status DC Artificial Tears (Artificial Tears) 1 drop BID OU Last administered on 19:46; Start 08/26/17 at 09:00 Non-Formulary Medication 20 mg DAILYWLUN PO ; Start 08/26/17 at 12:00; Status UNV Multivitamins/ Minerals (I-[place]avan) 1 tab BIDWMEALS PO Last administered on 18:04; Start 08/26/17 at 08:00 Non-Formulary Medication 2 cap DAILYWBKFT PO ; Start 08/26/17 at 08:00; Status UNV Simvastatin (Zocor) 40 mg HS PO Last administered on 09/03/17 19:43; Start at 21:00 Vitamin D (Vitamin D3) 50,000 unit Sa@2000 PO Last administered on 09/03/17 19 :46; Start 08/27/17 at 20:00 Sertraline HCl (Zoloft) 50 mg DAILY PO Last administered on 09/03/17 08:32; Start 08/30/17 at 09:00 Risperidone (RisperDAL) 0.37 mg QHS PO ; Start 08/30/17 at 21:00; Stop at 21:00; Status DC Risperidone (RisperDAL) 0.375 mg HS PO Last administered on 09/03/17 19:44; Start 08/30/17 at 21:00 Active Scripts Active Reported Celexa (Citalopram Hydrobromide) 20 Mg Tablet 20 Mg PO DAILY Zyrtec (Cetirizine Hcl) 10 Mg Tablet 10 Mg PO DAILY Tylenol (Acetaminophen) 325 Mg Tablet 650 Mg PO PRN Q6HRS PRN Trazodone Hcl 50 Mg Tablet 12.5 Mg PO QHS Simvastatin 40 Mg Tablet 40 Mg PO DAILY Seroquel (Quetiapine Fumarate) 25 Mg Tablet 25 Mg PO QHS Risperdal (Risperidone) 0.25 Mg Tablet 0.25 Mg PO QHS Preservision Areds Softgel (Vit A/Vit C/Vit E/Zinc/Copper) 1 Each Capsule 2 Cap PO DAILYWBKFT Preservision Areds Softgel (Vit A/Vit C/Vit E/Zinc/Copper) 1 Each Capsule 1 Cap PO QPM Nystop (Nystatin) 60 Gm Powder 1 Yasemin TP BID Lutein 20 Mg Tablet 20 Mg PO DAILYWLUN Artificial Tears Eye Drops (Dextran 70/Hypromellose) 15 Ml Drops 1 Drop OU BID Xanax (Alprazolam) 0.5 Mg Tablet 0.5 Mg PO PRN Q6HRS PRN Diagnosis: Problems: (1) Acute psychosis KALA COOK MD Sep 03, 2017 23:51
[2017-09-04 06:15] VITALS: BP 113/62
[2017-09-04] MEDS: NYSTATIN TOPICAL POWDER 15GM BOTTLE. TP SCH ×2 (06:37→21:05)
[2017-09-04] MEDS: CETIRIZINE HCL 10 MG TABLET PO SCH (06:37)
[2017-09-04] MEDS: SERTRALINE 50 MG TABLET. PO SCH (06:37)
[2017-09-04] MEDS: POLYVINYL ALCOHOL 1.4% OPHTH SOLUTION 15ML BOTTLE. OU SCH ×2 (06:37→17:49)
[2017-09-04] MEDS: MULTIVITAMIN I-VITE TABLET. PO SCH ×2 (06:37→17:48)
[2017-09-04 07:27] LABS: BASO % 0 % (0-3); EOS # 0.4 x10^3/uL (0.0-0.7); EOS % 5 % (0-3); HEMATOCRIT 45.5 % (36.0-47.0); HEMOGLOBIN 15.4 g/dL (12.0-15.5); LYMPH # 1.9 x10^3/uL (1.0-4.8); LYMPH % 25 % (24-48); MEAN CORPUSCULAR HEMOGLOBIN 30 pg (25-35); MEAN CORPUSCULAR HGB CONC 34 g/dL (31-37); MEAN CORPUSCULAR VOLUME 88 fL (79-100); MONO # 1.1 x10^3/uL (0.0-1.1); MONO % 14 % (0-9); NEUT # 4.5 x10^3uL (1.8-7.7); NEUT % 56 % (31-73); PLATELET COUNT 164 x10^3/uL (140-400); RED CELL DISTRIBUTION WIDTH 15.5 % (11.5-14.5)
[2017-09-04 07:42] LABS: ALBUMIN 3.2 g/dL (3.4-5.0); ALBUMIN/GLOBULIN RATIO 0.9 (1.0-1.7); CALCIUM 9.6 mg/dL (8.5-10.1); CREATININE 0.7 mg/dL (0.6-1.0); POTASSIUM 4.4 mmol/L (3.5-5.1); TOTAL BILIRUBIN 0.4 mg/dL (0.2-1.0); TOTAL PROTEIN 6.6 g/dL (6.4-8.2)
[2017-09-04 16:37] VITALS: BP 112/55
[2017-09-04] MEDS: traZODone 50 MG TABLET. PO SCH (17:47)
[2017-09-04] MEDS: risperiDONE 0.25 MG TABLET. PO SCH (17:48)
[2017-09-04] MEDS: SIMVASTATIN 40 MG TABLET. PO SCH (17:48)
--- NOTE | 2017-09-04 18:05 | PDOC ---
Exam Yao Demential Exam: Yao Note: Please also refer to the separate dictated note~for this date of service dictated separately.~Patient seen individually. Discussed the patient with Nursing staff reviewed the chart.~Reviewed interim history and current functioning. Reviewed vital signs,~Labs/ Radiology~and current medications noted below. Continue current treatment with the changes noted in the dictated addendum note Assessment: Vital Signs: Vital Signs Date Time Temp Pulse Resp B/P (MAP) Pulse Ox O2 Delivery O2 Flow Rate FiO2 09/04/17 16:37 98.2 68 16 112/55 (74) 94 09/01/17 16:23 Room Air I&O Intake and Output 09/05/17 07:00 Intake Total 1080 ml Balance 1080 ml Intake Oral 1080 ml Labs: Laboratory Tests Test 09/04/17 07:10 White Blood Count 8.0 x10^3/uL (4.0-11.0) Red Blood Count 5.20 x10^6/uL (3.50-5.40) Hemoglobin 15.4 g/dL (12.0-15.5) Hematocrit 45.5 % (36.0-47.0) Mean Corpuscular Volume 88 fL (79-100) Mean Corpuscular Hemoglobin 30 pg (25-35) Mean Corpuscular Hemoglobin Concent 34 g/dL (31-37) Red Cell Distribution Width 15.5 % (11.5-14.5) H Platelet Count 164 x10^3/uL (140-400) Neutrophils (%) (Auto) 56 % (31-73) Lymphocytes (%) (Auto) 25 % (24-48) Monocytes (%) (Auto) 14 % (0-9) H Eosinophils (%) (Auto) 5 % (0-3) H Basophils (%) (Auto) 0 % (0-3) Neutrophils # (Auto) 4.5 x10^3uL (1.8-7.7) Lymphocytes # (Auto) 1.9 x10^3/uL (1.0-4.8) Monocytes # (Auto) 1.1 x10^3/uL (0.0-1.1) Eosinophils # (Auto) 0.4 x10^3/uL (0.0-0.7) Basophils # (Auto) 0.0 x10^3/uL (0.0-0.2) Sodium Level 140 mmol/L (136-145) Potassium Level 4.4 mmol/L (3.5-5.1) Chloride Level 105 mmol/L (98-107) Carbon Dioxide Level 29 mmol/L (21-32) Anion Gap 6 (6-14) Blood Urea Nitrogen 19 mg/dL (7-20) Creatinine 0.7 mg/dL (0.6-1.0) Estimated GFR (Cockcroft-Gault) 79.0 BUN/Creatinine Ratio 27 (6-20) H Glucose Level 103 mg/dL (70-99) H Calcium Level 9.6 mg/dL (8.5-10.1) Total Bilirubin 0.4 mg/dL (0.2-1.0) Aspartate Amino Transferase (AST) 13 U/L (15-37) L Alanine Aminotransferase (ALT) 22 U/L (14-59) Alkaline Phosphatase 86 U/L (46-116) Total Protein 6.6 g/dL (6.4-8.2) Albumin 3.2 g/dL (3.4-5.0) L Albumin/Globulin Ratio 0.9 (1.0-1.7) L Current Medications: Meds: Current Medications Acetaminophen (Tylenol) 650 mg PRN Q6HRS PRN PO PAIN / TEMP; Start 08/26/17 at 00:45 Multi-Ingredient Ointment (Analgesic [place]) 1 yasemin PRN QID PRN TP MUSCLE PAIN; Start 08/26/17 at 00:45 Al Hydroxide/Mg Hydroxide (Mylanta Plus Xs) 15 ml PRN AFTMEALHC PRN PO DYSPEPSIA; Start 08/26/17 at 00:45 Magnesium Hydroxide (Milk Of Magnesia) 2,400 mg PRN QHS PRN PO CONSTIPATION Last administered on 08/31/17 07:47; Start 08/26/17 at 00:45 Alprazolam (Xanax) 0.5 mg PRN Q6HRS PRN PO ANXIETY / AGITATION; Start at 00:45 Citalopram Hydrobromide (CeleXA) 20 mg DAILY PO Last administered on 10:16; Start 08/26/17 at 09:00; Stop 08/29/17 at 19:37; Status DC Quetiapine Fumarate (SEROquel) 25 mg QHS PO Last administered on 08/28/17 19: 56; Start 08/26/17 at 21:00; Stop 08/29/17 at 19:37; Status DC Risperidone (RisperDAL) 0.25 mg QHS PO Last administered on 08/29/17 20:04; Start 08/26/17 at 21:00; Stop 08/30/17 at 18:39; Status DC Trazodone HCl (Desyrel) 12.5 mg QHS PO Last administered on 09/04/17 17:47; Start 08/26/17 at 21:00 Cetirizine HCl (ZyrTEC) 10 mg DAILY PO Last administered on 09/04/17 06:37; Start 08/26/17 at 09:00 Nystatin (Nystop) 1 yasemin BID TP Last administered on 09/04/17 06:37; Start at 09:00 Simvastatin (Zocor) 40 mg DAILY PO ; Start 08/26/17 at 09:00; Stop 08/26/17 at 09:00; Status DC Artificial Tears (Artificial Tears) 1 drop BID OU Last administered on 17:49; Start 08/26/17 at 09:00 Non-Formulary Medication 20 mg DAILYWLUN PO ; Start 08/26/17 at 12:00; Status UNV Multivitamins/ Minerals (I-[place]) 1 tab BIDWMEALS PO Last administered on 17:48; Start 08/26/17 at 08:00 Non-Formulary Medication 2 cap DAILYWBKFT PO ; Start 08/26/17 at 08:00; Status UNV Simvastatin (Zocor) 40 mg HS PO Last administered on 09/04/17 17:48; Start at 21:00 Vitamin D (Vitamin D3) 50,000 unit Sa@2000 PO Last administered on 09/03/17 19 :46; Start 08/27/17 at 20:00 Sertraline HCl (Zoloft) 50 mg DAILY PO Last administered on 09/04/17 06:37; Start 08/30/17 at 09:00 Risperidone (RisperDAL) 0.37 mg QHS PO ; Start 08/30/17 at 21:00; Stop at 21:00; Status DC Risperidone (RisperDAL) 0.375 mg HS PO Last administered on 09/04/17t 17:48; Start 08/30/17 at 21:00 Prenat Multivit/ [place]/Iron/Folic Ac (Multivitamin ) 1 tab DAILY PO ; Start 09/05/17 at 09:00 Active Scripts Active Reported Celexa (Citalopram Hydrobromide) 20 Mg Tablet 20 Mg PO DAILY Zyrtec (Cetirizine Hcl) 10 Mg Tablet 10 Mg PO DAILY Tylenol (Acetaminophen) 325 Mg Tablet 650 Mg PO PRN Q6HRS PRN Trazodone Hcl 50 Mg Tablet 12.5 Mg PO QHS Simvastatin 40 Mg Tablet 40 Mg PO DAILY Seroquel (Quetiapine Fumarate) 25 Mg Tablet 25 Mg PO QHS Risperdal (Risperidone) 0.25 Mg Tablet 0.25 Mg PO QHS Preservision Areds Softgel (Vit A/Vit C/Vit E/Zinc/Copper) 1 Each Capsule 2 Cap PO DAILYWBKFT Preservision Areds Softgel (Vit A/Vit C/Vit E/Zinc/Copper) 1 Each Capsule 1 Cap PO QPM Nystop (Nystatin) 60 Gm Powder 1 Yasemin TP BID Lutein 20 Mg Tablet 20 Mg PO DAILYWLUN Artificial Tears Eye Drops (Dextran 70/Hypromellose) 15 Ml Drops 1 Drop OU BID Xanax (Alprazolam) 0.5 Mg Tablet 0.5 Mg PO PRN Q6HRS PRN Diagnosis: Problems: (1) Anxiety disorder (2) Dementia in Alzheimer's disease with delusions (3) Dementia in Alzheimer's disease with depression (4) Dementia, vascular, with delusions (5) Dementia, vascular, with depression (6) Impulse control disorder KALA COOK MD Sep 04, 2017 18:05
[2017-09-05 06:24] VITALS: BP 116/77
[2017-09-05] MEDS: SERTRALINE 50 MG TABLET. PO SCH (10:02)
[2017-09-05] MEDS: MULTIVITAMIN I-VITE TABLET. PO SCH ×2 (10:02→16:55)
[2017-09-05] MEDS: CETIRIZINE HCL 10 MG TABLET PO SCH (10:02)
[2017-09-05] MEDS: POLYVINYL ALCOHOL 1.4% OPHTH SOLUTION 15ML BOTTLE. OU SCH ×2 (10:03→20:20)
[2017-09-05] MEDS: NYSTATIN TOPICAL POWDER 15GM BOTTLE. TP SCH ×2 (10:08→20:20)
[2017-09-05] MEDS: PRENATAL MULTIVITAMIN TABLET. PO SCH (10:08)
[2017-09-05 16:04] VITALS: BP 108/58
--- NOTE | 2017-09-05 19:58 | PDOC ---
Exam Yao Demential Exam: Yao Note: Please also refer to the separate dictated note~for this date of service dictated separately.~Patient seen individually. Discussed the patient with Nursing staff reviewed the chart.~Reviewed interim history and current functioning. Reviewed vital signs,~Labs/ Radiology~and current medications noted below. Continue current treatment with the changes noted in the dictated addendum note Assessment: Vital Signs: Vital Signs Date Time Temp Pulse Resp B/P (MAP) Pulse Ox O2 Delivery O2 Flow Rate FiO2 09/05/17 16:04 97.9 70 16 108/58 (75) 93 09/01/17 16:23 Room Air I&O Intake and Output 09/06/17 07:00 Intake Total 840 ml Balance 840 ml Intake Oral 840 ml # Voids 1 # Bowel Movements 1 Current Medications: Meds: Current Medications Acetaminophen (Tylenol) 650 mg PRN Q6HRS PRN PO PAIN / TEMP; Start 08/26/17 at 00:45 Multi-Ingredient Ointment (Analgesic [place]) 1 yasemin PRN QID PRN TP MUSCLE PAIN; Start 08/26/17 at 00:45 Al Hydroxide/Mg Hydroxide (Mylanta Plus Xs) 15 ml PRN AFTMEALHC PRN PO DYSPEPSIA; Start 08/26/17 at 00:45 Magnesium Hydroxide (Milk Of Magnesia) 2,400 mg PRN QHS PRN PO CONSTIPATION Last administered on 08/31/17 07:47; Start 08/26/17 at 00:45 Alprazolam (Xanax) 0.5 mg PRN Q6HRS PRN PO ANXIETY / AGITATION; Start at 00:45 Citalopram Hydrobromide (CeleXA) 20 mg DAILY PO Last administered on 10:16; Start 08/26/17 at 09:00; Stop 08/29/17 at 19:37; Status DC Quetiapine Fumarate (SEROquel) 25 mg QHS PO Last administered on 08/28/17 19: 56; Start 08/26/17 at 21:00; Stop 08/29/17 at 19:37; Status DC Risperidone (RisperDAL) 0.25 mg QHS PO Last administered on 08/29/17 20:04; Start 08/26/17 at 21:00; Stop 08/30/17 at 18:39; Status DC Trazodone HCl (Desyrel) 12.5 mg QHS PO Last administered on 09/04/17 17:47; Start 08/26/17 at 21:00 Cetirizine HCl (ZyrTEC) 10 mg DAILY PO Last administered on 09/05/17 10:02; Start 08/26/17 at 09:00 Nystatin (Nystop) 1 yasemin BID TP Last administered on 09/05/17 10:08; Start at 09:00 Simvastatin (Zocor) 40 mg DAILY PO ; Start 08/26/17 at 09:00; Stop 08/26/17 at 09:00; Status DC Artificial Tears (Artificial Tears) 1 drop BID OU Last administered on 10:03; Start 08/26/17 at 09:00 Non-Formulary Medication 20 mg DAILYWLUN PO ; Start 08/26/17 at 12:00; Status UNV Multivitamins/ Minerals (I-[place]) 1 tab BIDWMEALS PO Last administered on 16:55; Start 08/26/17 at 08:00 Non-Formulary Medication 2 cap DAILYWBKFT PO ; Start 08/26/17 at 08:00; Status UNV Simvastatin (Zocor) 40 mg HS PO Last administered on 09/04/17 17:48; Start at 21:00 Vitamin D (Vitamin D3) 50,000 unit Sa@2000 PO Last administered on 09/03/17 19 :46; Start 08/27/17 at 20:00 Sertraline HCl (Zoloft) 50 mg DAILY PO Last administered on 09/05/17 10:02; Start 08/30/17 at 09:00 Risperidone (RisperDAL) 0.37 mg QHS PO ; Start 08/30/17 at 21:00; Stop at 21:00; Status DC Risperidone (RisperDAL) 0.375 mg HS PO Last administered on 09/04/17 17:48; Start 08/30/17 at 21:00 Prenat Multivit/ [place]/Iron/Folic Ac (Multivitamin ) 1 tab DAILY PO Last administered on 09/05/17 10:08; Start 09/05/17 at 09:00 Active Scripts Active Reported Celexa (Citalopram Hydrobromide) 20 Mg Tablet 20 Mg PO DAILY Zyrtec (Cetirizine Hcl) 10 Mg Tablet 10 Mg PO DAILY Tylenol (Acetaminophen) 325 Mg Tablet 650 Mg PO PRN Q6HRS PRN Trazodone Hcl 50 Mg Tablet 12.5 Mg PO QHS Simvastatin 40 Mg Tablet 40 Mg PO DAILY Seroquel (Quetiapine Fumarate) 25 Mg Tablet 25 Mg PO QHS Risperdal (Risperidone) 0.25 Mg Tablet 0.25 Mg PO QHS Preservision Areds Softgel (Vit A/Vit C/Vit E/Zinc/Copper) 1 Each Capsule 2 Cap PO DAILYWBKFT Preservision Areds Softgel (Vit A/Vit C/Vit E/Zinc/Copper) 1 Each Capsule 1 Cap PO QPM Nystop (Nystatin) 60 Gm Powder 1 Yasemin TP BID Lutein 20 Mg Tablet 20 Mg PO DAILYWLUN Artificial Tears Eye Drops (Dextran 70/Hypromellose) 15 Ml Drops 1 Drop OU BID Xanax (Alprazolam) 0.5 Mg Tablet 0.5 Mg PO PRN Q6HRS PRN Diagnosis: Problems: (1) Acute psychosis (2) Anxiety disorder (3) Impulse control disorder (4) Dementia, vascular, with depression (5) Dementia, vascular, with delusions (6) Dementia in Alzheimer's disease with depression (7) Dementia in Alzheimer's disease with delusions KALA COOK MD Sep 05, 2017 19:58
[2017-09-05] MEDS: risperiDONE 0.25 MG TABLET. PO SCH (20:20)
[2017-09-05] MEDS: traZODone 50 MG TABLET. PO SCH (20:20)
[2017-09-05] MEDS: SIMVASTATIN 40 MG TABLET. PO SCH (20:20)
--- NOTE | 2017-09-06 00:22 | PN ---
DATE: 09/03/2017 PSYCHIATRIC PROGRESS NOTE This is a late entry for 09/03/2017, covers elements not covered in my initial note of 09/03/2017. SUBJECTIVE: I met with the patient the evening of 09/03/2017. The patient remains confused, but otherwise pleasant, sometimes delusional. REVIEW OF SYSTEMS: No CV, , pulmonary, eye, ENT system symptoms on review. Reliability poor. MENTAL STATUS EXAM: Oriented to herself. Insight, judgment, recent and remote memory, attention, concentration, fund of knowledge poor, consistent with her diagnosis mentioned in my initial note. PLAN: Continue current psychotropics. Reviewed drug interactions. Risk/benefit ratio favors no further change. KALA COOK MD DR: DIAZ/carl JOB#: [id number] / [id number]
--- NOTE | 2017-09-06 05:04 | PN ---
DATE: 09/04/2017 PSYCHIATRIC PROGRESS NOTE This is a late entry for 09/04/2017, covers elements not covered in my initial note of 09/04/2017. SUBJECTIVE: I met with the patient the evening of 09/04/2017. The patient remains confused, but otherwise pleasant, delusions are much better, not aggressive. REVIEW OF SYSTEMS: No CV, , pulmonary, eye, ENT system symptoms on review. Gait unsteady. She is in a wheelchair. MENTAL STATUS EXAM: Oriented to herself. Insight, judgment, recent and remote memory, attention, concentration, fund of knowledge poor, consistent with her diagnosis mentioned in my initial note. PLAN: Continue current psychotropics. Reviewed drug interactions. Risk/benefit ratio favors no further change. MAN Winsome COOK MD DR: DIAZ/carl JOB#: [id number] / [id number]
[2017-09-06 06:48] VITALS: BP 115/49
[2017-09-06] MEDS: PRENATAL MULTIVITAMIN TABLET. PO SCH (07:36)
[2017-09-06] MEDS: MULTIVITAMIN I-VITE TABLET. PO SCH ×2 (07:36→16:55)
[2017-09-06] MEDS: SERTRALINE 50 MG TABLET. PO SCH (07:36)
[2017-09-06] MEDS: CETIRIZINE HCL 10 MG TABLET PO SCH (07:36)
[2017-09-06] MEDS: NYSTATIN TOPICAL POWDER 15GM BOTTLE. TP SCH ×2 (07:37→19:55)
[2017-09-06] MEDS: POLYVINYL ALCOHOL 1.4% OPHTH SOLUTION 15ML BOTTLE. OU SCH ×2 (07:37→19:54)
[2017-09-06 16:39] VITALS: BP 114/63
[2017-09-06] MEDS: traZODone 50 MG TABLET. PO SCH (19:54)
[2017-09-06] MEDS: SIMVASTATIN 40 MG TABLET. PO SCH (19:55)
[2017-09-06] MEDS: risperiDONE 0.25 MG TABLET. PO SCH (19:55)
--- NOTE | 2017-09-06 21:46 | PDOC ---
Exam Yao Demential Exam: Yao Note: Please also refer to the separate dictated note~for this date of service dictated separately.~Patient seen individually. Discussed the patient with Nursing staff reviewed the chart.~Reviewed interim history and current functioning. Reviewed vital signs,~Labs/ Radiology~and current medications noted below. Continue current treatment with the changes noted in the dictated addendum note Assessment: Vital Signs: Vital Signs Date Time Temp Pulse Resp B/P (MAP) Pulse Ox O2 Delivery O2 Flow Rate FiO2 09/06/17 16:39 97.0 69 20 114/63 (80) 94 09/01/17 16:23 Room Air I&O Intake and Output 09/07/17 07:00 Intake Total 960 ml Balance 960 ml Intake Oral 960 ml Current Medications: Meds: Current Medications Acetaminophen (Tylenol) 650 mg PRN Q6HRS PRN PO PAIN / TEMP; Start 08/26/17 at 00:45 Multi-Ingredient Ointment (Analgesic [place]) 1 yasemin PRN QID PRN TP MUSCLE PAIN; Start 08/26/17 at 00:45 Al Hydroxide/Mg Hydroxide (Mylanta Plus Xs) 15 ml PRN AFTMEALHC PRN PO DYSPEPSIA; Start 08/26/17 at 00:45 Magnesium Hydroxide (Milk Of Magnesia) 2,400 mg PRN QHS PRN PO CONSTIPATION Last administered on 08/31/17 07:47; Start 08/26/17 at 00:45 Alprazolam (Xanax) 0.5 mg PRN Q6HRS PRN PO ANXIETY / AGITATION; Start at 00:45 Citalopram Hydrobromide (CeleXA) 20 mg DAILY PO Last administered on 10:16; Start 08/26/17 at 09:00; Stop 08/29/17 at 19:37; Status DC Quetiapine Fumarate (SEROquel) 25 mg QHS PO Last administered on 08/28/17 19: 56; Start 08/26/17 at 21:00; Stop 08/29/17 at 19:37; Status DC Risperidone (RisperDAL) 0.25 mg QHS PO Last administered on 08/29/17 20:04; Start 08/26/17 at 21:00; Stop 08/30/17 at 18:39; Status DC Trazodone HCl (Desyrel) 12.5 mg QHS PO Last administered on 09/06/17 19:54; Start 08/26/17 at 21:00 Cetirizine HCl (ZyrTEC) 10 mg DAILY PO Last administered on 09/06/17 07:36; Start 08/26/17 at 09:00 Nystatin (Nystop) 1 yasemin BID TP Last administered on 09/06/17 19:55; Start at 09:00 Simvastatin (Zocor) 40 mg DAILY PO ; Start 08/26/17 at 09:00; Stop 08/26/17 at 09:00; Status DC Artificial Tears (Artificial Tears) 1 drop BID OU Last administered on 19:54; Start 08/26/17 at 09:00 Non-Formulary Medication 20 mg DAILYWLUN PO ; Start 08/26/17 at 12:00; Status UNV Multivitamins/ Minerals (I-[place]) 1 tab BIDWMEALS PO Last administered on 16:55; Start 08/26/17 at 08:00 Non-Formulary Medication 2 cap DAILYWBKFT PO ; Start 08/26/17 at 08:00; Status UNV Simvastatin (Zocor) 40 mg HS PO Last administered on 09/06/17 19:55; Start at 21:00 Vitamin D (Vitamin D3) 50,000 unit Sa@2000 PO Last administered on 09/03/17 19 :46; Start 08/27/17 at 20:00 Sertraline HCl (Zoloft) 50 mg DAILY PO Last administered on 09/06/17 07:36; Start 08/30/17 at 09:00 Risperidone (RisperDAL) 0.37 mg QHS PO ; Start 08/30/17 at 21:00; Stop at 21:00; Status DC Risperidone (RisperDAL) 0.375 mg HS PO Last administered on 09/06/17 19:55; Start 08/30/17 at 21:00 Prenat Multivit/ [place]/Iron/Folic Ac (Multivitamin ) 1 tab DAILY PO Last administered on 09/06/17 07:36; Start 09/05/17 at 09:00 Active Scripts Active Reported Celexa (Citalopram Hydrobromide) 20 Mg Tablet 20 Mg PO DAILY Zyrtec (Cetirizine Hcl) 10 Mg Tablet 10 Mg PO DAILY Tylenol (Acetaminophen) 325 Mg Tablet 650 Mg PO PRN Q6HRS PRN Trazodone Hcl 50 Mg Tablet 12.5 Mg PO QHS Simvastatin 40 Mg Tablet 40 Mg PO DAILY Seroquel (Quetiapine Fumarate) 25 Mg Tablet 25 Mg PO QHS Risperdal (Risperidone) 0.25 Mg Tablet 0.25 Mg PO QHS Preservision Areds Softgel (Vit A/Vit C/Vit E/Zinc/Copper) 1 Each Capsule 2 Cap PO DAILYWBKFT Preservision Areds Softgel (Vit A/Vit C/Vit E/Zinc/Copper) 1 Each Capsule 1 Cap PO QPM Nystop (Nystatin) 60 Gm Powder 1 Yasemin TP BID Lutein 20 Mg Tablet 20 Mg PO DAILYWLUN Artificial Tears Eye Drops (Dextran 70/Hypromellose) 15 Ml Drops 1 Drop OU BID Xanax (Alprazolam) 0.5 Mg Tablet 0.5 Mg PO PRN Q6HRS PRN Diagnosis: Problems: (1) Acute psychosis (2) Anxiety disorder (3) Impulse control disorder (4) Dementia, vascular, with depression (5) Dementia, vascular, with delusions (6) Dementia in Alzheimer's disease with depression (7) Dementia in Alzheimer's disease with delusions KALA COOK MD Sep 06, 2017 21:46
[2017-09-07 06:19] VITALS: BP 136/93
--- NOTE | 2017-09-07 07:54 | PN ---
DATE: 09/05/2017 PSYCHIATRIC PROGRESS NOTE This late entry 09/05/2017 covers elements, not covered in my initial note for 09/05/2017. The patient slept 7-3/4 hours previous evening, ate nothing per dinner, but rest of the meals, adequate appetite. She is compliant with her medications. Walked with physical therapy staff, irritable with another patient in the evening, but generally redirectable. REVIEW OF SYSTEMS: Ambulation impaired in wheelchair. No CV, , pulmonary, eye, ENT system symptoms on review. Reliability poor. She is pleasant, verbal, as I met with her, quite confused. MENTAL STATUS EXAM: Oriented to herself. Insight, judgment, recent and remote memory, attention, concentration, fund of knowledge poor, consistent with her diagnosis. The psychotic symptoms very evident at admission seem to have resolved. LABORATORY DATA: Reviewed. IMPRESSION: Unchanged from initial note. PLAN: Continue current psychotropics, Zoloft, Risperdal along with trazodone scheduled and Xanax p.r.n., reviewed drug contractions. Risk/benefit ratio favors no further change. KALA COOK MD DR: DIAZ/carl JOB#: [id number] / [id number]
[2017-09-07] MEDS: POLYVINYL ALCOHOL 1.4% OPHTH SOLUTION 15ML BOTTLE. OU SCH ×2 (08:12→19:43)
[2017-09-07] MEDS: SERTRALINE 50 MG TABLET. PO SCH (08:12)
[2017-09-07] MEDS: MULTIVITAMIN I-VITE TABLET. PO SCH ×2 (08:12→17:32)
[2017-09-07] MEDS: CETIRIZINE HCL 10 MG TABLET PO SCH (08:12)
[2017-09-07] MEDS: NYSTATIN TOPICAL POWDER 15GM BOTTLE. TP SCH ×2 (08:12→19:43)
[2017-09-07] MEDS: PRENATAL MULTIVITAMIN TABLET. PO SCH (08:12)
[2017-09-07 16:35] VITALS: BP 103/63
[2017-09-07] MEDS: traZODone 50 MG TABLET. PO SCH (19:43)
[2017-09-07] MEDS: SIMVASTATIN 40 MG TABLET. PO SCH (19:43)
[2017-09-07] MEDS: risperiDONE 0.25 MG TABLET. PO SCH (19:43)
--- NOTE | 2017-09-07 21:48 | PDOC ---
Exam Yao Demential Exam: Yao Note: Please also refer to the separate dictated note~for this date of service dictated separately.~Patient seen individually. Discussed the patient with Nursing staff reviewed the chart.~Reviewed interim history and current functioning. Reviewed vital signs,~Labs/ Radiology~and current medications noted below. Continue current treatment with the changes noted in the dictated addendum note Assessment: Vital Signs: Vital Signs Date Time Temp Pulse Resp B/P (MAP) Pulse Ox O2 Delivery O2 Flow Rate FiO2 09/07/17 16:35 97.6 74 18 103/63 (76) 92 Room Air I&O Intake and Output 09/08/17 07:00 Intake Total 1320 ml Balance 1320 ml Intake Oral 1320 ml Current Medications: Meds: Current Medications Acetaminophen (Tylenol) 650 mg PRN Q6HRS PRN PO PAIN / TEMP; Start 08/26/17 at 00:45 Multi-Ingredient Ointment (Analgesic [place]) 1 yasemin PRN QID PRN TP MUSCLE PAIN; Start 08/26/17 at 00:45 Al Hydroxide/Mg Hydroxide (Mylanta Plus Xs) 15 ml PRN AFTMEALHC PRN PO DYSPEPSIA; Start 08/26/17 at 00:45 Magnesium Hydroxide (Milk Of Magnesia) 2,400 mg PRN QHS PRN PO CONSTIPATION Last administered on 08/31/17 07:47; Start 08/26/17 at 00:45 Alprazolam (Xanax) 0.5 mg PRN Q6HRS PRN PO ANXIETY / AGITATION; Start at 00:45 Citalopram Hydrobromide (CeleXA) 20 mg DAILY PO Last administered on 10:16; Start 08/26/17 at 09:00; Stop 08/29/17 at 19:37; Status DC Quetiapine Fumarate (SEROquel) 25 mg QHS PO Last administered on 08/28/17 19: 56; Start 08/26/17 at 21:00; Stop 08/29/17 at 19:37; Status DC Risperidone (RisperDAL) 0.25 mg QHS PO Last administered on 08/29/17 20:04; Start 08/26/17 at 21:00; Stop 08/30/17 at 18:39; Status DC Trazodone HCl (Desyrel) 12.5 mg QHS PO Last administered on 09/07/17 19:43; Start 08/26/17 at 21:00 Cetirizine HCl (ZyrTEC) 10 mg DAILY PO Last administered on 09/07/17 08:12; Start 08/26/17 at 09:00 Nystatin (Nystop) 1 yasemin BID TP Last administered on 09/07/17 19:43; Start at 09:00 Simvastatin (Zocor) 40 mg DAILY PO ; Start 08/26/17 at 09:00; Stop 08/26/17 at 09:00; Status DC Artificial Tears (Artificial Tears) 1 drop BID OU Last administered on :43; Start 08/26/17 at 09:00 Non-Formulary Medication 20 mg DAILYWLUN PO ; Start 08/26/17 at 12:00; Status UNV Multivitamins/ Minerals (I-Donavan) 1 tab BIDWMEALS PO Last administered on 17:32; Start 08/26/17 at 08:00 Non-Formulary Medication 2 cap DAILYWBKFT PO ; Start 08/26/17 at 08:00; Status UNV Simvastatin (Zocor) 40 mg HS PO Last administered on 09/07/17 19:43; Start at 21:00 Vitamin D (Vitamin D3) 50,000 unit Sa@2000 PO Last administered on 09/03/17 19 :46; Start 08/27/17 at 20:00 Sertraline HCl (Zoloft) 50 mg DAILY PO Last administered on 09/07/17 08:12; Start 08/30/17 at 09:00 Risperidone (RisperDAL) 0.37 mg QHS PO ; Start 08/30/17 at 21:00; Stop at 21:00; Status DC Risperidone (RisperDAL) 0.375 mg HS PO Last administered on 09/07/17 19:43; Start 08/30/17 at 21:00 Prenat Multivit/ [place]/Iron/Folic Ac (Multivitamin ) 1 tab DAILY PO Last administered on 09/07/17 08:12; Start 09/05/17 at 09:00 Active Scripts Active Reported Celexa (Citalopram Hydrobromide) 20 Mg Tablet 20 Mg PO DAILY Zyrtec (Cetirizine Hcl) 10 Mg Tablet 10 Mg PO DAILY Tylenol (Acetaminophen) 325 Mg Tablet 650 Mg PO PRN Q6HRS PRN Trazodone Hcl 50 Mg Tablet 12.5 Mg PO QHS Simvastatin 40 Mg Tablet 40 Mg PO DAILY Seroquel (Quetiapine Fumarate) 25 Mg Tablet 25 Mg PO QHS Risperdal (Risperidone) 0.25 Mg Tablet 0.25 Mg PO QHS Preservision Areds Softgel (Vit A/Vit C/Vit E/Zinc/Copper) 1 Each Capsule 2 Cap PO DAILYWBKFT Preservision Areds Softgel (Vit A/Vit C/Vit E/Zinc/Copper) 1 Each Capsule 1 Cap PO QPM Nystop (Nystatin) 60 Gm Powder 1 Yasemin TP BID Lutein 20 Mg Tablet 20 Mg PO DAILYWLUN Artificial Tears Eye Drops (Dextran 70/Hypromellose) 15 Ml Drops 1 Drop OU BID Xanax (Alprazolam) 0.5 Mg Tablet 0.5 Mg PO PRN Q6HRS PRN Diagnosis: Problems: (1) Acute psychosis (2) Anxiety disorder (3) Impulse control disorder (4) Dementia, vascular, with depression (5) Dementia, vascular, with delusions (6) Dementia in Alzheimer's disease with depression (7) Dementia in Alzheimer's disease with delusions KALA COOK MD Sep 07, 2017 21:48
[2017-09-08] MEDS ORDERED: SERT50TA PO (02:09)
[2017-09-08] MEDS ORDERED: CHOL500016 PO (02:09)
[2017-09-08] MEDS ORDERED: PREN1TAB58 PO (02:10)
[2017-09-08] MEDS ORDERED: POLY15DR27 OP (02:13)
--- NOTE | 2017-09-08 04:05 | PN ---
DATE: 09/06/2017 This late entry 09/06/2017 cover elements not covered in my initial note of 09/06/2017. SUBJECTIVE: I met with the patient in the evening of 09/06/2017. The patient remains confused. Previous evening, she thought her was taking a younger , but she was not agitated. She has not been aggressive and given her age, the Risperdal dosage is adequate considering the risk/benefit ratio. REVIEW OF SYSTEMS: Ambulation impaired, in wheelchair. No CV, , pulmonary, eye, ENT system symptoms on review. Reliability poor. MENTAL STATUS EXAM: Oriented to herself. Insight, judgment, recent and remote memory, attention, concentration, fund of knowledge poor, consistent with her diagnosis mentioned in my initial note. PLAN: Continue current psychotropics. Reviewed drug interactions. Risk/benefit ratio favors no further change. MAN Winsome COOK MD DR: DIAZ/carl JOB#: [id number] / [id number]
[2017-09-08 06:36] VITALS: BP 107/76
[2017-09-08] MEDS: NYSTATIN TOPICAL POWDER 15GM BOTTLE. TP SCH (08:36)
[2017-09-08] MEDS: POLYVINYL ALCOHOL 1.4% OPHTH SOLUTION 15ML BOTTLE. OU SCH (08:36)
[2017-09-08] MEDS: CETIRIZINE HCL 10 MG TABLET PO SCH (08:36)
[2017-09-08] MEDS: MULTIVITAMIN I-VITE TABLET. PO SCH (08:37)
[2017-09-08] MEDS: SERTRALINE 50 MG TABLET. PO SCH (08:37)
[2017-09-08] MEDS: PRENATAL MULTIVITAMIN TABLET. PO SCH (08:37)
--- NOTE | 2017-09-08 18:55 | PDOC ---
Exam Yao Demential Exam: Yao Note: Please also refer to the separate dictated note~for this date of service dictated separately.~Patient seen individually. Discussed the patient with Nursing staff reviewed the chart.~Reviewed interim history and current functioning. Reviewed vital signs,~Labs/ Radiology~and current medications noted below. Continue current treatment with the changes noted in the dictated addendum note Assessment: Vital Signs: Vital Signs Date Time Temp Pulse Resp B/P (MAP) Pulse Ox O2 Delivery O2 Flow Rate FiO2 09/08/17 06:36 97.8 69 20 107/76 (86) 8 Room Air I&O Intake and Output 09/09/17 07:00 Intake Total 600 ml Balance 600 ml Intake Oral 600 ml Current Medications: Meds: Current Medications Acetaminophen (Tylenol) 650 mg PRN Q6HRS PRN PO PAIN / TEMP; Start 08/26/17 at 00:45; Stop 09/08/17 at 15:24; Status DC Multi-Ingredient Ointment (Analgesic [place]) 1 yasemin PRN QID PRN TP MUSCLE PAIN; Start 08/26/17 at 00:45; Stop 09/08/17 at 15:24; Status DC Al Hydroxide/Mg Hydroxide (Mylanta Plus Xs) 15 ml PRN AFTMEALHC PRN PO DYSPEPSIA; Start 08/26/17 at 00:45; Stop 09/08/17 at 15:24; Status DC Magnesium Hydroxide (Milk Of Magnesia) 2,400 mg PRN QHS PRN PO CONSTIPATION Last administered on 08/31/17 07:47; Start 08/26/17 at 00:45; Stop 09/08/17 at 15:24; Status DC Alprazolam (Xanax) 0.5 mg PRN Q6HRS PRN PO ANXIETY / AGITATION; Start at 00:45; Stop 09/08/17 at 15:24; Status DC Citalopram Hydrobromide (CeleXA) 20 mg DAILY PO Last administered on 10:16; Start 08/26/17 at 09:00; Stop 08/29/17 at 19:37; Status DC Quetiapine Fumarate (SEROquel) 25 mg QHS PO Last administered on 08/28/17 19: 56; Start 08/26/17 at 21:00; Stop 08/29/17 at 19:37; Status DC Risperidone (RisperDAL) 0.25 mg QHS PO Last administered on 08/29/17 20:04; Start 08/26/17 at 21:00; Stop 08/30/17 at 18:39; Status DC Trazodone HCl (Desyrel) 12.5 mg QHS PO Last administered on 09/07/17 19:43; Start 08/26/17 at 21:00; Stop 09/08/17 at 15:24; Status DC Cetirizine HCl (ZyrTEC) 10 mg DAILY PO Last administered on 09/08/17 08:36; Start 08/26/17 at 09:00; Stop 09/08/17 at 15:24; Status DC Nystatin (Nystop) 1 yasemin BID TP Last administered on 09/08/17 08:36; Start at 09:00; Stop 09/08/17 at 15:24; Status DC Simvastatin (Zocor) 40 mg DAILY PO ; Start 08/26/17 at 09:00; Stop 08/26/17 at 09:00; Status DC Artificial Tears (Artificial Tears) 1 drop BID OU Last administered on 08:36; Start 08/26/17 at 09:00; Stop 09/08/17 at 15:24; Status DC Non-Formulary Medication 20 mg DAILYWLUN PO ; Start 08/26/17 at 12:00; Status UNV Multivitamins/ Minerals (I-[place]avan) 1 tab BIDWMEALS PO Last administered on 08:37; Start 08/26/17 at 08:00; Stop 09/08/17 at 15:24; Status DC Non-Formulary Medication 2 cap DAILYWBKFT PO ; Start 08/26/17 at 08:00; Status UNV Simvastatin (Zocor) 40 mg HS PO Last administered on 09/07/17 19:43; Start at 21:00; Stop 09/08/17 at 15:24; Status DC Vitamin D (Vitamin D3) 50,000 unit Sa@2000 PO Last administered on 09/03/17 19 :46; Start 08/27/17 at 20:00; Stop 09/08/17 at 15:24; Status DC Sertraline HCl (Zoloft) 50 mg DAILY PO Last administered on 09/08/17 08:37; Start 08/30/17 at 09:00; Stop 09/08/17 at 15:24; Status DC Risperidone (RisperDAL) 0.37 mg QHS PO ; Start 08/30/17 at 21:00; Stop at 21:00; Status DC Risperidone (RisperDAL) 0.375 mg HS PO Last administered on 09/07/17 19:43; Start 08/30/17 at 21:00; Stop 09/08/17 at 15:24; Status DC Prenat Multivit/ [place]/Iron/Folic Ac (Multivitamin ) 1 tab DAILY PO Last administered on 09/08/17 08:37; Start 09/05/17 at 09:00; Stop 09/08/17 at 15:24; Status DC Active Scripts Active Reported Artificial Tears (Polyvinyl Alcohol) 15 Ml Drops 15 Ml OP BID Vitamins ( Vits W-Ca,Fe,Fa(<1MG)) 1 Each Tablet 1 Each PO DAILY Zoloft (Sertraline Hcl) 50 Mg Tablet 50 Mg PO DAILY Vitamin D3 (Cholecalciferol (Vitamin D3)) 5,000 Unit Tablet 5,000 Unit PO QSA Zyrtec (Cetirizine Hcl) 10 Mg Tablet 10 Mg PO DAILY Tylenol (Acetaminophen) 325 Mg Tablet 650 Mg PO PRN Q6HRS PRN Trazodone Hcl 50 Mg Tablet 12.5 Mg PO QHS Simvastatin 40 Mg Tablet 40 Mg PO DAILY Risperdal (Risperidone) 0.25 Mg Tablet 0.375 Mg PO QHS Preservision Areds Softgel (Vit A/Vit C/Vit E/Zinc/Copper) 1 Each Capsule 1 Cap PO QPM Nystop (Nystatin) 60 Gm Powder 1 Yasemin TP BID Xanax (Alprazolam) 0.5 Mg Tablet 0.5 Mg PO PRN Q6HRS PRN Diagnosis: Problems: (1) Dementia in Alzheimer's disease with delusions (2) Dementia in Alzheimer's disease with depression (3) Dementia, vascular, with delusions (4) Dementia, vascular, with depression (5) Impulse control disorder (6) Anxiety disorder KALA COOK MD Sep 08, 2017 18:54
--- NOTE | 2017-09-09 20:54 | DS ---
DATE OF DISCHARGE: 09/08/2017 This late entry, date of service 09/08/2017, covers elements not covered in my initial note of 09/08/2017. I met with the patient individually and patient was also staffed at a treatment team meeting with the entire team and staffed from [facility], [place], social professionals, assistant HIRA Stewart, and HIRA Buck attending. Lengthy discussion about the patient's diagnosis, progress, changes in psychotropics. Appetite 100%, sleeping 7-8 hours, confused, pleasant, somewhat delusional, not aggressive. REVIEW OF SYSTEMS: Ambulation impaired, in a wheelchair. No CV, , eye, ENT or pulmonary system symptoms on review. Reliability poor. MENTAL STATUS EXAM: Oriented to herself. Insight, judgment, recent and remote memory, attention, concentration, fund of knowledge poor, consistent with her diagnosis. The intermediate was willing to accept her on discharge 09/08/2017. REASON FOR ADMISSION: Please refer to the admission history for details. Briefly, the patient is an 87-year-old female referred to us from [facility] by her primary care physician on account of worsening paranoia, delusions, refusing medications, thinking her parents have been killed, exit seeking, believing she has been missing child, crying and threatening staff. The patient believed the forensic social worker was her grandmother amongst other things. SIGNIFICANT FINDINGS AND CLINICAL COURSE: Following admission, the patient was seen daily individually by myself from a psychiatric standpoint, medical followup with Dr. Lopez/Dr. Gale. Adjustments were made in her psychotropics carefully and slowly deliberately and she seemed to respond to a combination of Risperdal 0.375 mg at bedtime, trazodone 12.5 mg at bedtime, Zoloft 50 mg a day, Xanax p.r.n. Reviewed drug interactions risk/benefit ratio favors no further change. CONDITION AT DISCHARGE: Improved. FINAL DIAGNOSES: Major neurocognitive disorder, Alzheimer, vascular with depression, delusion, behavioral disturbance; anxiety disorder, unspecified; impulse control disorder, unspecified. Rest as unchanged from admission. DISCHARGE MEDICATIONS: Please refer to the MRAD. DISCHARGE INSTRUCTIONS: Outpatient psychiatric and medical followup at the intermediate. Time for discharge day management greater than 30 minutes. MAN Winsome COOK MD DR: Ever JOB#: [id number] / [id number]
--- NOTE | 2017-09-10 02:56 | PN ---
DATE: 09/07/2017 This late entry for 09/07/2017 covers elements not covered in my initial note of 09/07/2017. SUBJECTIVE: I met with the patient in the evening of 09/07/2017. Overall, the patient remains confused, slept 7 hours, compliant with her medications. Not aggressive, somewhat delusional, but not interfering with her functioning or aggressiveness. REVIEW OF SYSTEMS: No CV, , pulmonary, eye, ENT system symptoms on review. Reliability poor. Gait unsteady in a wheelchair. MENTAL STATUS EXAM: Oriented to herself. Insight, judgment, recent and remote memory, attention, concentration, fund of knowledge poor, consistent with her diagnosis as mentioned in my initial note. PLAN: Continue current psychotropics. Possible [facility] 09/08/2017. Reviewed drug interactions. Risk/benefit ratio favors no further change. MAN Winsome COOK MD DR: DIAZ/carl JOB#: [id number] / [id number]
== END 2017-09-08 15:23 | disposition home or self-care (01) | DRG 884 ==
LOC: EEVIPCON 22:08 → ER 22:08 → GEROPSY 08-26 00:36
PROVIDERS: ADMIT Psychiatry & Neurology Psychiatry; ATTEND Psychiatry & Neurology Psychiatry
DX: F01.51 Vascular dementia, unspecified severity, with behavioral disturbance (principal); G30.9 Alzheimer's disease, unspecified; F02.81 Dementia in other diseases classified elsewhere, unspecified severity, with behavioral disturbance; F23 Brief psychotic disorder; E78.5 Hyperlipidemia, unspecified; F06.30 Mood disorder due to known physiological condition, unspecified; F32.9 Major depressive disorder, single episode, unspecified; F41.9 Anxiety disorder, unspecified; F63.9 Impulse disorder, unspecified; R29.6 Repeated falls
CPT/HCPCS: 36415; 80047; 80053; 80061; 80076; 80307; 81001; 82306; 82607; 83036; 83540; 83550; 83735; 84436; 84443; 84480; 85025; 86592; 86593; 93005; G0480; P9612; 97110; 97116; 97530; 97535; 99285-25; G0479